=== PATIENT | male | born 1930 | race Caucasian/White ===

== ENCOUNTER 2016-12-23 06:17 | Emergency (ER) | payer MEDICARE, OTHER ==
--- NOTE | 2016-12-23 06:41 | ERNOTE ---
Chest Pain/Cardiac HPI Chief Complaint: Chest Pain Time Seen by Provider: 12/23/16 06:27 Source: patient Exam Limitations: no limitations Allergies/Adverse Reactions: Allergies No Known Allergies Allergy (Verified 12/23/16 06:27) Home Medications: HOME MEDICATIONS Acetaminophen [Tylenol] 650 mg PO QID PRN #1 tablet 08/08/14 [Last Taken Unknown ] Meropenem [Merrem] 1 gm IV Q8H #1 vial 08/08/14 [Last Taken Unknown] Amox Tr/Potassium Clavulanate [Augmentin 500-125 Tablet] 500 mg PO TID #30 tab 08/11/14 [Last Taken Unknown] Clotrimazole [Lotrimin Cream] 1 appl TP BID #1 tube 08/11/14 [Last Taken Unknown ] Colchicine 0.6 mg PO QID #120 tablet 08/11/14 [Last Taken Unknown] Escitalopram Oxalate [Lexapro] 20 mg PO DAILY #30 tab 08/11/14 [Last Taken Unknown] Furosemide [Lasix] 80 mg PO BID #60 tablet 08/11/14 [Last Taken Unknown] Mirtazapine [Remeron] 30 mg PO HS #30 tablet 08/11/14 [Last Taken Unknown] Potassium Chloride [K-Dur] 20 meq PO QID #120 tablet.sa 08/11/14 [Last Taken Unknown] Sennosides/Docusate Sodium [Senokot-S] 2 tab PO BID #120 tablet 08/11/14 [Last Taken Unknown] Warfarin Sodium [Coumadin] 4 mg PO DAILY@1700 #30 tablet 08/11/14 [Last Taken Unknown] tiZANidine HCL [Tizanidine HCl] 2 mg PO TID PRN #20 tablet 12/23/16 [Last Taken Unknown] Narrative: Pt was awakened by right sided sharp chest pain that was "worse with some movements". Initially 7-8/10, now 2/10. Severity/Quality: sharp Location: other - right chest Chest Pain Radiation: no radiation Activities at Onset: sleep Modifying Factors - Improves: Present: position Modifying Factors - Worsens: Present: movement Nitro Today/Relief: 0.4 mg x 1, provided by EMS Associated Symptoms: Absent: shortness of breath, diaphoresis, nausea Prior Chest Pain/Cardiac Workup: Reports: prior chest pain Review of Systems - Review of Systems Constitutional: Absent: recent illness, fever EYE: Present: no symptoms reported ENT: Absent: nose congestion, nasal drainage Respiratory: Absent: shortness of breath, cough Cardiology: Present: See HPI. Absent: edema Gastrointestinal/Abdominal: Absent: nausea, vomiting, abdominal pain Genitourinary: Present: no symptoms reported Musculoskeletal: Absent: muscle pain, muscle stiffness Skin: Present: no symptoms reported Neurological: Present: no symptoms reported Endocrine: Present: no symptoms reported Hematologic/Lymphatic: Present: no symptoms reported Psych: Present: no symptoms reported - Patient's Past Medical History Patient History - Medical: Depression Patient History - Cardiac/Respiratory: Atrial Fibrillation Patient History - Cancer: Skin Patient History - Surgical Procedures: Total Knee Replacement, Other - Family History Mother Family History - Medical: Father Family History - Medical: - Social History Living Situations: home Psych History: Hx of Depression, Current tx/ever been on anti-depressants or anti-anxiety meds Smoking Status: Never smoker Have you smoked in the past 12 months: No Do you dip or chew tobacco: No ED Progress - Results and Orders Patient's Lab Results:: I have reviewed the patient's lab results. Results and Orders: Laboratory Tests 12/23/16 12/23/16 12/23/16 06:40 06:40 06:40 WBC 7.7 Hgb 14.6 Hct 42.0 Plt Count 184 PT 33.5 H INR (Anticoag Therapy) 3.22 H PTT (Brigitte) 41.8 H Sodium 139 Potassium 4.1 Chloride 103 Carbon Dioxide 30.2 Anion Gap 9.9 BUN 21 Creatinine 1.11 Est GFR (Non-Af Amer) 67 D BUN/Creatinine Ratio 18.9 Random Glucose 101 Calcium 8.6 Total Bilirubin 0.9 AST 22 ALT 18 L Alkaline Phosphatase 71 Troponin I Less than 0.017 Total Protein 6.9 Albumin 3.8 - Vital Signs Patient's Vital Signs:: I have reviewed the patient's vital signs. Vital Signs: Vital Signs 12/23/16 06:20 Temperature 36 C L Pulse Rate 71 Respiratory 18 Rate Blood Pressure 142/88 O2 Sat by Pulse 94 Oximetry - EKG EKG: NSR, RBBB EKG read: Interp. by me - X-Ray X-Ray #1 X-Ray: chest Interpretation: Reviewed by me X-ray Comments: no cardiopulmonary abnormalities, no fractures noted. - Progress/Reassessment Chief Complaint: Chest Pain Progress Note-Subjective: 12/23/16 07:32 worse with flexion of neck or leaning forward. Better laying back. Departure - Departure Clinical Impression: Chest pain, musculoskeletal Disposition: Home self-care Condition: Good Instructions: Muscle Strain, [id number], Chest Wall Pain, [id number] Referrals: Murray Azul MD [Primary Care Provider] - Prescriptions: tiZANidine HCL [Tizanidine HCl] 2 mg PO TID PRN #20 tablet PRN Reason: Pain
[2016-12-23 06:46] LABS: Hemoglobin 14.6 gm/dL (13.5-18.0); Mean Cell Volume 93.8 fl (78-100); Mean Corpuscular Hemoglobin 32.6 pg (27-31); Mean Corpuscular Hgb Conc 34.8 g/dl (32-36); Mean Platelet Volume 10.4 fl (6.0-9.5); Neutrophil # 5.4 K/mm3 (1.3-6.0); Platelet Count 184 K/mm3 (150-450); Red Blood Count 4.48 M/mm3 (4.7-6.0); Red Cell Distribution Width 12.7 % (11.5-14.0); White Blood Count 7.7 K/mm3 (4.0-10.5)
[2016-12-23 06:56] LABS: Prothrombin Time (Patient) 33.5 Seconds (9.4-11.4)
[2016-12-23 06:57] LABS: INR 3.22 INR (0.90-1.10); Partial Thrombolplastin Time 41.8 Seconds (24-32)
[2016-12-23 07:04] LABS: ALT 18 U/L (19-67); AST 22 U/L (0-48); Albumin * 3.8 gm/dl (3.4-5.0); Alkaline Phosphatase * 71 U/L (50-170); Anion Gap 9.9 mmol/L (6.8-13.8); BUN/Creatinine Ratio 18.9 (9.0-21.6); Bilirubin, Total 0.9 mg/dL (0.0-1.1); Blood Urea Nitrogen 21 mg/dL (6-23); Ca. Corrected For Albumin 8.4 mg/dL (8.4-10.2); Calcium * 8.6 mg/dL (7.9-10.9); Carbon Dioxide 30.2 mmol/L (24-32.6); Chloride 103 mmol/L (97-106); Glucose * 101 mg/dL (70-110); Potassium 4.1 mmol/L (3.4-4.6); Sodium 139 mmol/L (132-142); Total Protein 6.9 gm/dL (6.2-8.2); Troponin I Less than 0.017 ng/ml (0.00-0.10)
--- OUTSIDE RECORDS SUMMARY | 2016-12-23 07:24 | XMS REPORT | Continuity of Care Document ---
:1930 Author Organization [facility] ([facility]) Address [address] [place] [address] Phone [phone] Care Team Providers Name Role Phone Murray Norris Primary Care Provider [phone] Source Comments This disclosure is being made pursuant to the Care Everywhere program, applicable federal and state laws, and may not contain all informaitonavailable regarding this patient.[facility] ([facility]) Active Allergies and Adverse Reactions No Known Allergies Current Medications Prescription Sig. Disp. Refills Start End Date Status Date docusate 100 mg Take 1 capsule 100 capsule 0 Active capsule (100 mg total) by 6 mouth 2 times daily as needed for Constipation. warfarin 1 mg Continue on 3 mg 200 tablet 3 Active tablet every night except 6 Monday/ when you take 4mg.Continue to have INR check as prior to surgery. escitalopram Take 1 tablet by 11 Active oxalate 20 mg mouth daily. 6 tablet naproxen sodium Take 220 mg by Active (ALEVE) 220 mg mouth 2 times capsule daily as needed. psyllium 0.52 g Take 2.6 g by 12/14/19 Discontinued capsule mouth 2 times 17 daily. oxyCODONE 5 mg Take 1-2 tablets 90 tablet 0 12/14/19 Discontinued immediate release (5-10 mg total) by 6 17 tablet mouth every 4 hours as needed. traMADol 50 mg Take 1-2 tablets 90 tablet 0 12/14/19 Discontinued tablet (50-100 mg total) 6 17 by mouth every 4 hours as needed. Use preferentially ahead of oxycodone to avoid confusion acetaminophen 500 Take 2 tablets 80 tablet 11 12/14/19 Discontinued mg tablet (1,000 mg total) 6 17 by mouth every 6 hours as needed. 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 Status post excision. Hx of skin cancer, basal cell 03/03/2009 Overview: Basal cell carcinoma, left medial canthus, removed via Mohs on 10-22-96, repaired by Oculoplastics, Status post Mohs excision of a basal cell carcinoma, right upper forehead, on 08-24-96 Basal cell carcinoma, right yazdanism, treated with curettage and fulguration on March 04, 2005 Actinic keratosis 03/03/2009 Overview: Followed by [facility] dermatology. 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 Achilles bursitis or tendinitis 03/04/2008 Overview: Bilateral tendonitis, secondary to quinolone exposure. Chest pain, unspecified 04/10/2006 Enthesopathy of hip region 03/22/2005 Most Recent Encounters Date Type Specialty Providers Description 12/22/2016 Office Visit Dermatology Satinder Guevara MD Dx: Actinic keratoses (Primary Dx) 12/13/2016 Hospital Encounter Radiology Liset Steele MD Dx: Aftercare following surgery 12/13/2016 Office Visit Orthopaedic Mati Joe MD Dx: Aftercare following surgery (Primary Dx) Immunizations Name Dates Previously Given Next Due Influenza, unspecified 03/30/2012,04/18/2011,05/22/2002,04/18,06/28/1996,06/30/1995 Pneumococcal Polysaccharide, PPSV23 08/19/2005 (Pneumovax 23) Pneumococcal, unspecified 06/28/1994 Td, adsorbed adult PF 08/19/2005 Social History Tobacco Use Types Packs/Day Years Used Date Never Smoker Smokeless Tobacco: Never Used Tobacco Cessation:Counseling Given: Yes Comments: Alcohol Use Drinks/Week oz/Week Comments No Last Filed Vital Signs Vital Sign Reading Time Taken Blood Pressure 117/63 10/25/2015 8:00 AM CDT Pulse 65 10/25/2015 8:00 AM CDT Temperature 37.3 C (99.1 F) 10/25/2015 8:00 AM CDT Respiratory Rate 18 10/25/2015 8:00 AM CDT Height 1.93 m (6' 4") 12/13/2016 10:40 AM CDT Weight 108.863 kg (240 lb) 12/13/2016 10:40 AM CDT Body Mass Index 29.23 12/13/2016 10:40 AM CDT Oxygen Saturation 95% 10/25/2015 8:00 AM CDT Plan of Care Patient Goal Type Goal Lifestyle maintain current health Date Type Specialty Providers Description 06/22/2017 Appointment Dermatology Gay Kidd MD [address] [place] [address] [phone] (Fax) Chief Comp: Patient Satinder Guevara MD [address] [place] [address] [phone] (Fax) Reported Reason For Visit Health Maintenance Due Date Last Done Comments Hepatitis B Vaccine (1 of 3 1930 - Primary Series) Tdap Vaccine 1943 Colonoscopy 1982 Zoster Vaccine 1992 Pneumococcal Vaccine (2 of 08/19/2006 08/19/2005 2 - PCV13) Lipid Disorder Screening 02/21/2012 02/20/2007, 09/07/2005, Additional history 11/07/2003 exists Td Vaccine 08/19/2015 08/19/2005 Influenza Vaccine: Seasonal Addressed 05/12/2016 (Completed Overridden with the outside this hospital intention of not or clinic), 03/30/2012, completing the topic, 04/18/2011 Additional history exists Procedures from Last 3 Months Procedure Name Priority Date/Time Associated Comments Diagnosis DESTRUCTION Routine 12/22/2016 9:18 Actinic keratoses Results for this PREMALIGNANT LESIONS AM CDT procedure are in the results section. Results from Last 3 Months DESTRUCTION PREMALIGNANT LESIONS (12/22/2016 9:18 AM) Narrative Tai Lawson MD 12/22/20169:18 AM Dermatology Clinic Note Encounter Date: 12/22/2016 Subjective: History of Present Illness: This 86 y.o. male follows up for a history of lentigo maligna and non-melanoma skin cancer.At his last visit an seborrheic keratosis was biopsied and actinic keratoses were treated with cryotherapy. Today he reports healing well from his cryotherapy and biopsy. He reports a few ongoing lesions on the left cheek that will continue to scale, but are otherwise asymptomatic. He denies weight loss, fatigue, night sweats, or lymphadenopathy. No other significant skin rashes or lesions that are bleeding, pruritic, or changing in size/color are reported. The patient has no other skin concerns. Past Medical History: 1) History of non-melanoma skin cancers: -- Basal cell carcinoma on the left medial canthus, removed via Mohs on (10/22/96), repaired by Oculoplastics, -- Basal cell carcinoma, right upper forehead, s/p Mohs excision on 08/24/96 -- Basal cell carcinoma of the right yazdanism treated with curettage and fulguration on (March 04, 2005), with slight degree of induration, suspect secondary to scar formation -- Squamous cell carcinoma, invasive, well-differentiated, s/p excision on left upper arm (07/15/2011) - Skin, left upper arm, shave biopsy (07/02/15): Scar. Milium. -- SCC on left cheek, s/p excision (05/09/12). 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 3) Status post excision of a lentigo maligna, left posterior arm (08/11/94). -Skin, left upper arm, punch (09/12/13): Mature adipose tissue compatible with lipoma. 4) Skin, left yazdanism, shave biopsy (08/16/12): Malignant melanoma in situ, lentigo maligna type. -S/p Mohs (09/2012) 5) Hernia 6) Bilateral knee osteoarthritis s/p bilateral arthroplasty 7) Hyperlipidemia 8) History of hyperplastic colonic polyps 9) Seborrheic keratoses (1) Skin, right nasolabial fold, shave (02/20/09): Seborrheic keratosis. (2) Skin, mid back, shave (06/30/16):Seborrheic keratosis. 10) Actinic keratoses. 11) Skin, right superior scapula, shave biopsy (02/20/14): Benign lichenoid keratosis. 12) Paroxysmal atrial fibrillation 13) Depression 14) Right knee replacement 10/2016 Social History: . 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 He lives 2 hours out of [place]. He enjoys [employer]. He has a hx of serving in the Family History: No family hx of melanoma or non-melanoma skin cancer Medications: Outpatient Medication Currently Taking Medication Sig Refill docusate 100 mg capsule Take 1 capsule (100 mg total) by mouth 2 times daily as needed for Constipation. 0 escitalopram oxalate 20 mg tablet Take 1 tablet by mouth daily. 11 naproxen sodium (ALEVE) 220 mg capsule Take 220 mg by mouth 2 times daily as needed. warfarin 1 mg tablet Continue on 3 mg every night except Monday/ when you take 4mg. Continue to have INR check as prior to surgery. 3 Allergies: No Known Allergies Review of Systems: Skin Establ Pt: The patient denies any new rash, pruritus, or lesions that are symptomatic, changing or bleeding, except as per HPI. Constitutional: The patient denies fatigue, fevers, chills, unintended weight loss, and night sweats Objective: Physical exam: This is a well developed, well-nourished male in no acute distress, with a pleasant affect.Waist-up skin, which includes the head/face, neck, both arms, chest, back, abdomen, digits and/or nails, was examined. Lower legs also examined. - Well-healed surgical scars on the left yazdanism, left cheek, left helix without induration, erythema, telangiectasias - There is a erythematous macules with overlying adherent scale on the left cheek x 3 - Skin colored waxy, hyperkeratotic, stuck on appearing papules on the trunk and extremities - No pre-auricular, post-auricular, submental, cervical, supraclavicular, or axillary lymphadenopathy. - There are no other skin lesions of concern in the areas examined. Impression: 1. History of non-melanoma skin cancers, as per past medical history. No clinical evidence of recurrence. 2. History of lentigo maligna x 2 - on the left yazdanism s/p Mohs (09/2012) and on the left posterior arm s/p excision (08/11/94) 3. Seborrheic keratoses- multiple trunk and extremities 4. Actinic keratoses x 3 (left cheek) Plan: 1. Clinical findings discussed with the patient 2. Cryotherapy performed to actinic keratoses as below. 3. Recommend sunscreens SPF #30 or greater, protective clothing and avoidance of tanning beds. 4. Recommend periodic self skin exams and report of any new or changing lesions. Follow up 6 months. Procedure Performed: AK destruction Area affected: head/neck Location details: left cheek Number of lesions: 3 Additional Procedure Detail: The above described lesions were treated with liquid nitrogen cryotherapy to achieve a freeze border of 1-2 mm. Post-cryotherapy wound care instructions were provided. Explicit verbal and written wound care instructions were provided. The patient left the Dermatology Clinic in good condition. Satinder Guevara MD staffed the patient and was physically present for the ng portions of the above major procedure(s). Staff Involved: Staff and Resident/Fellow Tai aLwson MD RIGHT KNEE AP& LATERAL (12/13/2016 10:28 AM) Impressions impression: Redemonstrated right knee arthroplasty in stable alignment without visualized complication. Small right knee joint effusion. Vascular calcifications noted. Narrative Procedure: RIGHT KNEE AP & LATERAL Clinical Indication: Postoperative right knee arthroplasty follow-up Comparison:Right knee radiograph December 01, 2015 Findings/ Procedure Note Rambo, Incoming Imaging Results - MonDecember 13, 2016 10:31 AM CDT Procedure: RIGHT KNEE AP & LATERAL Clinical Indication: Postoperative right knee arthroplasty follow-up Comparison: Right knee radiograph December 01, 2015 Findings/ IMPRESSION impression: Redemonstrated right knee arthroplasty in stable alignment without visualized complication. Small right knee joint effusion. Vascular calcifications noted.
[2016-12-23 07:39] VITALS: BP 133/90
== END 2016-12-23 08:32 | disposition home or self-care (01) ==
LOC: ER 06:17
DX: R07.89 Other chest pain (principal); Z85.828 Personal history of other malignant neoplasm of skin

== ENCOUNTER 2017-02-04 12:47 | Inpatient (IN) | payer MEDICARE, OTHER ==
--- NOTE | 2017-02-04 13:02 | ERNOTE ---
Head Injury HPI - Narrative Date of Service: 02/04/17 - General Injury to: head, other - bilateral knee Time Seen by Provider: 02/04/17 12:51 Source: patient, EMS Exam Limitations: no limitations - Immun/Allergies/Home Medications Allergies/Adverse Reactions: Allergies Allergy/AdvReac Type Severity Reaction Status Date / Time No Known Allergies Allergy Verified 12/23/16 06:27 Home Medications: HOME MEDICATIONS Acetaminophen [Tylenol] 650 mg PO QID PRN #1 tablet 08/08/14 [Last Taken Unknown ] Meropenem [Merrem] 1 gm IV Q8H #1 vial 08/08/14 [Last Taken Unknown] Amox Tr/Potassium Clavulanate [Augmentin 500-125 Tablet] 500 mg PO TID #30 tab 08/11/14 [Last Taken Unknown] Clotrimazole [Lotrimin Cream] 1 appl TP BID #1 tube 08/11/14 [Last Taken Unknown ] Colchicine 0.6 mg PO QID #120 tablet 08/11/14 [Last Taken Unknown] Escitalopram Oxalate [Lexapro] 20 mg PO DAILY #30 tab 08/11/14 [Last Taken Unknown] Furosemide [Lasix] 80 mg PO BID #60 tablet 08/11/14 [Last Taken Unknown] Mirtazapine [Remeron] 30 mg PO HS #30 tablet 08/11/14 [Last Taken Unknown] Potassium Chloride [K-Dur] 20 meq PO QID #120 tablet.sa 08/11/14 [Last Taken Unknown] Sennosides/Docusate Sodium [Senokot-S] 2 tab PO BID #120 tablet 08/11/14 [Last Taken Unknown] Warfarin Sodium [Coumadin] 4 mg PO DAILY@1700 #30 tablet 08/11/14 [Last Taken Unknown] tiZANidine HCL [Tizanidine HCl] 2 mg PO TID PRN #20 tablet 12/23/16 [Last Taken Unknown] - History of Present Illness Narrative: 86-year-old white male states that he fell prior to arrival. Patient states that he has a history of becoming lightheaded when he first stands up and he oftentimes falls. He states to me that this is not unusual. Today he was seated in the garage stood up quickly and started to walk in accident he fell. He landed on his knees but he also hit his head on the floor. No loss of consciousness. No neck pain or neck injury. He has mild pain of bilateral knees right more than left. He was able to flag down a car passing by who summoned EMS. Patient tried to refuse transfer to the hospital per him but ambulance brought him to our facility. Patient has no confusion. No nausea vomiting. No amnesia. He has no complaints at this time. He is on Coumadin but he is uncertain why Reason for Fall: Reports: lightheaded Loss of Consciousness: Denies: no loss of consciousness Associated Symptoms: Denies: chest pain, cough, shortness of breath, fever/ chills, diaphoresis, headaches, neck pain, weakness, syncope, seizure, loss of appetite, malaise, nausea, vomiting Review of Systems - Review of Systems Constitutional: Present: no symptoms reported. Absent: recent illness, fever, chills EYE: Present: no symptoms reported. Absent: vision changes ENT: Present: no symptoms reported Respiratory: Present: no symptoms reported Cardiology: Present: no symptoms reported. Absent: chest pain, palpitations, syncope, edema, claudication Gastrointestinal/Abdominal: Present: no symptoms reported Genitourinary: Present: no symptoms reported Musculoskeletal: Present: See HPI. Absent: back pain, neck pain Skin: Present: no symptoms reported Neurological: Present: See HPI, dizziness/light-headedness. Absent: anxiety, seizure, weakness, numbness, tingling, tremors Hematologic/Lymphatic: Present: See HPI All Other Systems: All systems neg except as marked - Patient's Past Medical History Patient History - Medical: Depression Patient History - Cardiac/Respiratory: Atrial Fibrillation Patient History - Cancer: Skin Patient History - Surgical Procedures: Total Knee Replacement, Other - Family History Mother Family History - Medical: Father Family History - Medical: - Social History Living Situations: home Psych History: Hx of Depression, Current tx/ever been on anti-depressants or anti-anxiety meds Physical Exam - Physical Exam General Appearance: Present: wd/wn, alert, no apparent distress Head Exam: Present: normal inspection, no evidence of injury. Absent: active bleeding, Heredia's Sign, contusions, ecchymosis, lacerations, swelling, tenderness Eye Exam: Normal inspection: bilateral, PERRL: bilateral, EOMI: bilateral Ears, Nose, Throat: Present: normal ENT inspection Neck: Present: normal inspection, nontender Respiratory: Present: no respiratory distress, normal breath sounds, no accessory muscle use, chest nontender, lungs clear Cardiovascular/Chest: Present: regular rate, rhythm, no murmur, normal peripheral pulses Gastrointestinal/Abdominal: Present: normal bowel sounds, nontender, soft Back Exam: Present: normal inspection, normal range of motion, no CVA tenderness , no vertebral tenderness Extremity Exam: Present: normal except -, other - bilateral knee exam. Full range of motion. No effusion. Small area of erythema and contusion over bilateral patellas. No ligamentous instability. No specific tenderness to suspect bony fracture Neurological Exam: Present: alert, oriented, normal mood/affect, no motor/ sensory deficits, contract law specialist II-XII nml as tested, other - patient walks with a very slow wide-based case and is unsteady. He would fall if not assisted.. Absent: normal cerebellar test Skin Exam: Present: normal color, warm/dry ED Progress - Results and Orders Patient's Lab Results:: I have reviewed the patient's lab results. - Vital Signs Patient's Vital Signs:: I have reviewed the patient's vital signs. - Progress/Reassessment Progress:: Unchanged Progress Note-Subjective: 02/04/17 13:36 Telemetry revealed patient in sinus rhythm during his ED stay. Vital signs stable. CT no acute findings. Labs unremarkable. Orthostatic vital signs unremarkable. But patient is unable to ambulate without assistance. I'm certain he would fall without assistance. 02/04/17 13:37 02/04/17 13:41 Plan - Plan Plan: Patient unable to ambulate without assistance. He would surely fall. Orthostatic vital signs were good. No nystagmus. No vertigo. Patient lives alone and cannot be discharged home. Spoke with hospitalist on-call she accepts admission. In my opinion patient will need to have MRI of the brain tomorrow morning. I am unable to do an MRI at this time in the ED. patient will need PT OT evaluation. He has a history of atrial fibrillation but is currently in sinus rhythm. I have ordered a UA which is pending. Departure Clinical Impression: Paroxysmal atrial fibrillation Accidental fall Qualifiers: Encounter type: initial encounter Qualified Code(s): W19.XXXA - Unspecified fall, initial encounter Head injury Qualifiers: Encounter type: initial encounter Qualified Code(s): S09.90XA - Unspecified injury of head, initial encounter Contusion of knee, left Qualifiers: Encounter type: initial encounter Qualified Code(s): S80.02XA - Contusion of left knee, initial encounter Contusion of right knee Qualifiers: Encounter type: initial encounter Qualified Code(s): S80.01XA - Contusion of right knee, initial encounter - Departure Disposition: [facility] Condition: Stable Instructions: Fall Prevention in the Home, [id number], Contusion, Easy-to- Read, Head Injury, Adult, [id number]
[2017-02-04 13:03] LABS: Hematocrit 39.2 % (42.0-52.0); Hemoglobin 13.3 gm/dL (13.5-18.0); Mean Cell Volume 96.1 fl (78-100); Mean Corpuscular Hemoglobin 32.6 pg (27-31); Mean Corpuscular Hgb Conc 33.9 g/dl (32-36); Mean Platelet Volume 10.5 fl (6.0-9.5); Neutrophil # 4.8 K/mm3 (1.3-6.0); Neutrophil % 65.3 % (42-75.0); Platelet Count 166 K/mm3 (150-450); Red Blood Count 4.08 M/mm3 (4.7-6.0); White Blood Count 7.3 K/mm3 (4.0-10.5)
[2017-02-04 13:15] LABS: INR 2.09 INR (0.90-1.10); Prothrombin Time (Patient) 21.7 Seconds (9.4-11.4)
[2017-02-04 13:18] LABS: Albumin * 3.5 gm/dl (3.4-5.0); Anion Gap 11.6 mmol/L (6.8-13.8); BUN/Creatinine Ratio 16.8 (9.0-21.6); Bilirubin, Total 0.6 mg/dL (0.0-1.1); Ca. Corrected For Albumin 8.5 mg/dL (8.4-10.2); Calcium * 8.4 mg/dL (7.9-10.9); Carbon Dioxide 28.1 mmol/L (24-32.6); Potassium 3.7 mmol/L (3.4-4.6); Total Protein 6.5 gm/dL (6.2-8.2)
[2017-02-04 14:32] LABS: Urine Appearance Clear; Urine Bacteria None Seen; Urine Bilirubin Negative (NEGATIVE); Urine Blood Negative /ul (NEGATIVE); Urine Color Yellow; Urine Ketone Negative (NEGATIVE); Urine Nitrite Negative (NEGATIVE); Urine Protein Negative (NEGATIVE); Urine RBC None Seen /hpf (0-5); Urine Specific Gravity 1.015 SP.GR. (1.005-1.030); Urine Urobilinogen Normal (NORMAL); Urine WBC None Seen /hpf (0-5)
--- NOTE | 2017-02-04 19:56 | HP ---
Chief Complaint - Chief Complaint Date of Service: 02/04/17 Time of Service: 19:55 Chief Complaint: dizziness with fall earlier this morning History of Present Illness: Patient is a 86-year-old WM with a history of chronic A. fib, OA with bilateral TKA, chronic dizziness who came to the ER as his dizziness became worse and had a fall without LOC. He was evaluated in the ER and underwent a head CT w/o which showed chronic microvascular disease and no acute pathology. The patient was admitted into observation. His labs are relatively normal. He did have some orthostatic changes but no nystagmus. 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 - Patient's Past Medical History Additional info: PAST MEDICAL HISTORY: Chronic A. fib on warfarin therapy, dizziness, osteoarthritis with bilateral TKA , depression, lower extremity edema, gout. Patient History - Cancer: Skin Additional Info: PAST SURGICAL HISTORY: Tonsillectomy; colonoscopy 2009 or 2010; LT TKA- 2004; RT TKA-2014; - Family History Mother Family History - Medical: - -old age Father Family History - Medical: - -bladder cancer - Social History Living Situations: alone - ; 2014 Psych History: Hx of Depression, Current tx/ever been on anti-depressants or anti-anxiety meds Smoking Status: Never smoker Have you smoked in the past 12 months: No Review Of Systems (GEN) - Review of Systems Generalized/Overall Review: Absent: Weakness, Weight loss Respiratory: Absent: Cough, Shortness of Breath Cardiac: Present: Edema. Absent: Chest Pain Abdominal: Absent: Nausea, Vomiting Allergies/Adverse Reactions: Allergies Allergy/AdvReac Type Severity Reaction Status Date / Time No Known Allergies Allergy Verified 02/04/17 15:53 Home Medications: HOME MEDICATIONS Escitalopram Oxalate [Lexapro] 20 mg PO DAILY #30 tab 08/11/14 [Last Taken Unknown] Warfarin Sodium [Coumadin] 4 mg PO [id number] 02/05/17 [Last Taken Unknown] Warfarin Sodium [Coumadin] 5 mg PO MOTH 02/05/17 [Last Taken Unknown] Exam - Exam Vital Signs: Vital Signs - Last Taken Temp 36.3 C L 02/04/17 19:00 Pulse 62 02/04/17 19:00 Resp 16 02/04/17 19:00 BP 125/61 02/04/17 19:00 Pulse Ox 96 02/04/17 19:00 Constitutional: Present: Elderly - over 6 feet able to give a reasonable H/o ENT Exam: Present: hearing grossly normal, moist mucous membranes Eye Exam: bilateral eye: PERRL, EOMI Neck: Present: normal inspection, trachea midline Respiratory: Present: lungs clear, normal breath sounds. Absent: no accessory muscle use Cardiovascular/Chest: Present: systolic murmur, irregularly irregular Peripheral Pulses: carotid (R): 2+, carotid (L): 2+ Abdomen: Present: Normal bowel sounds, nontender. Absent: no rebound tenderness Extremity: Present: normal inspection - mild edema ankles Skin Exam: Present: normal color, warm/dry Neurologic: Present: alert, oriented x 3 Eye contact: Present: cooperative, good eye contact, normal speech Diagnostic Studies: Laboratory Tests 02/04/17 12:55 WBC 7.3 Hgb 13.3 L Hct 39.2 L Plt Count 166 02/04/17 12:55 Plasma Sodium 143 H Potassium 3.7 Chloride 107 H Carbon Dioxide 28.1 BUN 21 Creatinine 1.25 Est GFR (Non-Af Amer) 58 L Random Glucose 110 Calcium Adj for Albumin 8.5 Total Bilirubin 0.6 AST 18 ALT 16 L Alkaline Phosphatase 68 Albumin 3.5 Assessment/Plan - Narrative Narrative: 1. Dizziness with orthostatic changes: Patient will be given 1 L of normal saline to see if there is be an improvement in orthostatic changes. Does not have evidence of nystagmus, abnormalities of [id number] to finger test etc. May require cortisol testing. Consider MRI with contrast. Fasting B12 level in a.m. 2. Chronic A. fib: On warfarin therapy. 3. Osteoarthritis: Chronic and stable. S/P bilateral TKA. 4. Other medical problems: Ankle edema, gout, remote history of depression reviewed and stable.
[2017-02-04] MEDS ORDERED: NORMAL SALINE 500 ML IV ONE (20:53)
[2017-02-05] MEDS ORDERED: ACETAMINOPHEN 325 MG TABLET PO PRN (06:57)
[2017-02-05 08:24] LABS: Prothrombin Time (Patient) 27.5 Seconds (9.4-11.4)
[2017-02-05 08:25] LABS: INR 2.64 INR (0.90-1.10)
[2017-02-05] MEDS: CLOTRIMAZOLE 15 APPL TUBE TP SCH ×2 (09:15→21:16)
[2017-02-05] MEDS: POTASSIUM CHLORIDE 20 MEQ TABLET.SA PO SCH ×2 (09:15→16:39)
[2017-02-05] MEDS: COLCHICINE 0.6 MG TABLET PO SCH ×4 (09:15→21:14)
[2017-02-05] MEDS: ESCITALOPRAM OXALATE 10 MG TAB PO SCH (09:15)
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
[2017-02-05] MEDS ORDERED: LORazepam 2 MG/ML DISP.SYRIN IV ONE (12:02)
[2017-02-05] MEDS: WARFARIN SODIUM 4 MG TABLET PO SCH (16:40)
[2017-02-05] MEDS: MIRTAZAPINE 15 MG TABLET PO SCH (21:14)
[2017-02-05] MEDS ORDERED: HALOPERIDOL LACTATE 5 MG/ML VIAL IM PRN (23:38)
[2017-02-06 00:10] LABS: Hematocrit 39.9 % (42.0-52.0); Hemoglobin 13.5 gm/dL (13.5-18.0); Mean Cell Volume 95.9 fl (78-100); Mean Corpuscular Hemoglobin 32.5 pg (27-31); Mean Corpuscular Hgb Conc 33.8 g/dl (32-36); Mean Platelet Volume 10.7 fl (6.0-9.5); Neutrophil % 65.3 % (42-75.0); Platelet Count 163 K/mm3 (150-450); Red Blood Count 4.16 M/mm3 (4.7-6.0); Red Cell Distribution Width 12.9 % (11.5-14.0); White Blood Count 7.7 K/mm3 (4.0-10.5)
[2017-02-06] MEDS: HALOPERIDOL 5 MG TABLET PO PRN (00:14)
[2017-02-06 00:21] LABS: Albumin * 3.4 gm/dl (3.4-5.0); Anion Gap 10.6 mmol/L (6.8-13.8); BUN/Creatinine Ratio 19.8 (9.0-21.6); Bilirubin, Total 0.5 mg/dL (0.0-1.1); Ca. Corrected For Albumin 8.4 mg/dL (8.4-10.2); Calcium * 8.2 mg/dL (7.9-10.9); Carbon Dioxide 30.3 mmol/L (24-32.6); Potassium 3.9 mmol/L (3.4-4.6); Total Protein 6.3 gm/dL (6.2-8.2)
--- NOTE | 2017-02-06 02:12 | PN ---
Addendum entered and electronically signed by Shari Toro ARNP 02/06/17 07: 50: patient changed to inpatient status due to new diagnosis of mental status changes and pneumonia. sg Original Note: <Shari Toro - Last Filed: 02/06/17 02:13> Subjective - Date and Time Seen Date: 02/06/17 Time: 02:07 Subjective Narrative: pt with acute mental status changes overnight. became confused, started hallucinating. due to acute change, labs ordered and chest xray ordered (which has not been done as far as i can tell ) this admission. Objective - Review of Systems Generalized/Overall Review: Reports: Weakness, Fatigue. Denies: Fever EENTM: Reports: No Symptoms Reported Respiratory: Reports: No Symptoms Reported Cardiac: Reports: No Symptoms Reported Abdominal: Reports: No Symptoms Reported Genitourinary Symptoms: Reports: Frequency Musculoskeletal Complaints: Reports: No Symptoms Reported Neurological: Reports: No Symptoms Reported Skin: Reports: No Symptoms Reported Endocrine: Reports: No Symptoms Reported Misc: All systems neg except as marked - Vitals Vitals: Last Vital Signs Temp 36.5 C 02/05/17 18:00 Pulse 73 02/05/17 18:00 Resp 18 02/05/17 18:00 BP 102/50 02/05/17 18:00 Pulse Ox 96 02/05/17 18:00 - Abnormal Lab Findings Abnormal Lab Findings: Abnormal Lab Results 02/05/17 02/05/17 02/05/17 Range/Units 00:00 00:00 08:10 RBC 4.16 L (4.7-6.0) M/mm3 Hct 39.9 L (42.0-52.0) % MCH 32.5 H (27-31) pg MPV 10.7 H (6.0-9.5) fl Lymphocytes % 19.7 L (20-51) % Monocytes % 10.8 H (0.0-9) % Eosinophils % 3.5 H (0.0-3.0) % PT 27.5 H (9.4-11.4) Seconds INR (Anticoag Therapy) 2.64 H (0.90-1.10) INR Sodium 144 H (132-142) mmol/L Plasma Sodium 144 H (130-142) mmol/L Chloride 107 H (97-106) mmol/L ALT 18 L (19-67) U/L - EKG/Xray Findings XRAY: chest Interpretation: Reviewed by me - chest xray shows RML pneumonia - confirmed by dr bhatti (erp). - Exam Constitutional: Present: No distress, Elderly. Absent: Oriented x3 - confused and oriented x1 ENT Exam: Present: hearing grossly normal Neck: Present: full range of motion, supple Breasts: Present: Exam deferred Respiratory: Present: chest non-tender, normal breath sounds - left lobe and right upper lobe, no respiratory distress, no accessory muscle use, rales - right middle to lower lobe Cardiovascular/Chest: Present: normal peripheral pulses, regular rate, rhythm, no chest tenderness Abdomen: Present: soft, nontender, nondistended /Rectal: Present: Exam deferred Extremity: Present: non-tender, normal inspection, no calf tenderness Skin Exam: Present: warm/dry, no cyanosis, pallor Assessment/Plan Plan Narrative: Acute mental status change - labs wnl. - pt unwilling to take ativan iv today and thus was unable to sit still for brain MRI today - chest xray done due to AMS - showed RML pneumonia. - awaiting further workup. RML pneumonia - overread by ERP - still c/o fatigue and dizziness - Start antibiotics - Rocephin 1 mg iv daily - Day #1 - Azithromycin 500 mg iv daily - Day #1 - Incentive spirometer while awake. Afib - chronic - on coumadin - INR therapeutic Code status: Full code Gi Proph: hold for now due to AMS VTE: coumadin, INR therapeutic. - Problems/Diagnosis (1) Change in mental status Problem: Acute QualifierTitle: Altered mental status type: unspecified Qualified Code(s) : R41.82 - Altered mental status, unspecified (2) Pneumonia Problem: Acute QualifierTitle: Pneumonia type: due to unspecified organism Laterality: right Lung location: middle lobe of lung Qualified Code(s): J18.1 - Lobar pneumonia, unspecified organism (3) Accidental fall Problem: Acute QualifierTitle: Encounter type: initial encounter Qualified Code(s): W19.XXXA - Unspecified fall, initial encounter (4) Atrial fibrillation Problem: Chronic QualifierTitle: Atrial fibrillation type: chronic Qualified Code(s): I48.2 - Chronic atrial fibrillation (5) MBD (minimal brain dysfunction) Problem: Suspected (6) Osteoarthritis Problem: Chronic QualifierTitle: Osteoarthritis location: multiple joints Osteoarthritis type: primary Qualified Code(s): M15.0 - Primary generalized (osteo)arthritis <Murray Azul - Last Filed: 02/06/17 13:22> Subjective Subjective Narrative: Our nurse practitioner hospitalist, the television cameraman ER doctor and I all agree there is a RML infiltrate on this patient's CXR. Both the nurse practitioner hospitalist and I hear rhonchi in this patient's RML on auscultation. This patient has a clinical diagnosis of RML pneumonia, which explains last night's acute delerium, in spite of the radiologist's interpretation of the CXR as non acute. The three of us practitioners disagree with the radiologist's CXR assessment. Because of the pneumonia diagnosis, we will admit the patient to an acute bed and treat him for pneumonia. I estimate he will be here for three more days. In retrospect, it probably also explains why he was especially weak , fell on his driveway, couldn't get up, precipitating his admission to this hospital. I directed all of out nurse practitioner's care for this patient. Objective - Vitals Vitals: Last Vital Signs Temp 36.6 C 02/06/17 06:00 Pulse 62 02/06/17 06:00 Resp 18 02/06/17 06:00 BP 146/82 02/06/17 06:00 Pulse Ox 96 02/06/17 06:00 - Abnormal Lab Findings Abnormal Lab Findings: Abnormal Lab Results 02/05/17 02/05/17 02/06/17 Range/Units 00:00 00:00 02:10 RBC 4.16 L (4.7-6.0) M/mm3 Hct 39.9 L (42.0-52.0) % MCH 32.5 H (27-31) pg MPV 10.7 H (6.0-9.5) fl Lymphocytes % 19.7 L (20-51) % Monocytes % 10.8 H (0.0-9) % Eosinophils % 3.5 H (0.0-3.0) % PT 29.1 H (9.4-11.4) Seconds INR (Anticoag Therapy) 2.80 H (0.90-1.10) INR Sodium 144 H (132-142) mmol/L Plasma Sodium 144 H (130-142) mmol/L Chloride 107 H (97-106) mmol/L ALT 18 L (19-67) U/L Assessment/Plan - Problems/Diagnosis (1) Atrial fibrillation Problem: Chronic Qualifiers: Atrial fibrillation type: chronic Qualified Code(s): I48.2 - Chronic atrial fibrillation (2) Osteoarthritis Problem: Chronic Qualifiers: Osteoarthritis location: multiple joints Osteoarthritis type: primary Qualified Code(s): M15.0 - Primary generalized (osteo)arthritis (3) MBD (minimal brain dysfunction) Problem: Suspected (4) Accidental fall Problem: Acute Qualifiers: Encounter type: initial encounter Qualified Code(s): W19.XXXA - Unspecified fall, initial encounter
[2017-02-06] MEDS: AZITHROMYCIN 500 MG in DEXTROSE 5 % IN WATER 250 ML IV SCH ×2 (03:19)
[2017-02-06 07:58] LABS: INR 2.8 INR (0.90-1.10); Prothrombin Time (Patient) 29.1 Seconds (9.4-11.4)
[2017-02-06] MEDS: ESCITALOPRAM OXALATE 10 MG TAB PO SCH (11:17)
[2017-02-06] MEDS: COLCHICINE 0.6 MG TABLET PO SCH ×4 (11:17→20:42)
[2017-02-06] MEDS: POTASSIUM CHLORIDE 20 MEQ TABLET.SA PO SCH ×2 (11:18→16:22)
[2017-02-06] MEDS: CLOTRIMAZOLE 15 APPL TUBE TP SCH ×2 (11:18→20:42)
[2017-02-06] MEDS: WARFARIN SODIUM 4 MG TABLET PO SCH (16:22)
[2017-02-06] MEDS: MIRTAZAPINE 15 MG TABLET PO SCH (20:42)
[2017-02-06 22:48] LABS: Hematocrit 38.5 % (42.0-52.0); Mean Cell Volume 97.2 fl (78-100); Mean Corpuscular Hemoglobin 32.8 pg (27-31); Mean Corpuscular Hgb Conc 33.8 g/dl (32-36); Mean Platelet Volume 10.5 fl (6.0-9.5); Neutrophil # 4.8 K/mm3 (1.3-6.0); Neutrophil % 59.8 % (42-75.0); Platelet Count 163 K/mm3 (150-450); Red Blood Count 3.96 M/mm3 (4.7-6.0); Red Cell Distribution Width 13.2 % (11.5-14.0); Venous Blood Gas HCO3 26.1 mmol/L (22.0-29.0); Venous Blood Gas pH 7.4 (7.32-7.43); White Blood Count 8.1 K/mm3 (4.0-10.5)
[2017-02-06 23:10] LABS: Anion Gap 10.2 mmol/L (6.8-13.8); BUN/Creatinine Ratio 19.3 (9.0-21.6); Bilirubin, Total 0.2 mg/dL (0.0-1.1); Ca. Corrected For Albumin 8.5 mg/dL (8.4-10.2); Carbon Dioxide 29.2 mmol/L (24-32.6); Potassium 4.4 mmol/L (3.4-4.6); Total Protein 5.9 gm/dL (6.2-8.2)
[2017-02-07] MEDS: NORMAL SALINE 1,000 ML IV PRN ×2 (00:28→18:12)
[2017-02-07] MEDS: HALOPERIDOL 5 MG TABLET PO PRN (00:30)
[2017-02-07] MEDS: AZITHROMYCIN 500 MG in DEXTROSE 5 % IN WATER 250 ML IV SCH ×2 (04:34)
[2017-02-07 06:09] LABS: Prothrombin Time (Patient) 33.8 Seconds (9.4-11.4)
[2017-02-07 06:20] LABS: INR 3.25 INR (0.90-1.10)
--- NOTE | 2017-02-07 07:42 | PN ---
Subjective - Date and Time Seen Date: 02/07/17 Time: 07:39 Subjective Narrative: Feels ok, no new problems. For MRI today. Objective - Review of Systems Generalized/Overall Review: Reports: Malaise EENTM: Reports: No Symptoms Reported Respiratory: Reports: Cough Cardiac: Reports: No Symptoms Reported Abdominal: Reports: No Symptoms Reported Genitourinary Symptoms: Reports: No Symptoms Reported Musculoskeletal Complaints: Reports: No Symptoms Reported Neurological: Reports: No Symptoms Reported Skin: Reports: No Symptoms Reported Endocrine: Reports: No Symptoms Reported Misc: All systems neg except as marked - Vitals Vitals: Last Vital Signs Selected Entries 02/07/17 02/07/17 03:07 03:26 Temperature 36.4 C L Temperature Oral Source Pulse Rate 54 L Respiratory 18 Rate Blood Pressure 101/55 O2 Sat by Pulse 95 Oximetry Oxygen Delivery Room Air Method - Abnormal Lab Findings Abnormal Lab Findings: Abnormal Lab Results 02/06/17 02/06/17 02/06/17 Range/Units 22:45 22:45 22:45 RBC 3.96 L (4.7-6.0) M/mm3 Hgb 13.0 L (13.5-18.0) gm/dL Hct 38.5 L (42.0-52.0) % MCH 32.8 H (27-31) pg MPV 10.5 H (6.0-9.5) fl Monocytes % 10.5 H (0.0-9) % Eosinophils % 4.6 H (0.0-3.0) % PT (9.4-11.4) Seconds INR (Anticoag Therapy) (0.90-1.10) INR pO2 62.6 H (23.3-35.1) mmHg Total CO2 27.4 H (22.0-26.0) mmol/L VBG O2 Saturation 91.9 L (94.0-98.0) % Chloride 107 H (97-106) mmol/L Random Glucose 111 H (70-110) mg/dL Total Protein 5.9 L (6.2-8.2) gm/dL Albumin 3.0 L (3.4-5.0) gm/dl Procalcitonin (0.05-0.50) ng/mL 02/06/17 02/07/17 Range/Units 22:45 05:56 RBC (4.7-6.0) M/mm3 Hgb (13.5-18.0) gm/dL Hct (42.0-52.0) % MCH (27-31) pg MPV (6.0-9.5) fl Monocytes % (0.0-9) % Eosinophils % (0.0-3.0) % PT 33.8 H (9.4-11.4) Seconds INR (Anticoag Therapy) 3.25 H (0.90-1.10) INR pO2 (23.3-35.1) mmHg Total CO2 (22.0-26.0) mmol/L VBG O2 Saturation (94.0-98.0) % Chloride (97-106) mmol/L Random Glucose (70-110) mg/dL Total Protein (6.2-8.2) gm/dL Albumin (3.4-5.0) gm/dl Procalcitonin Less than 0.05 L (0.05-0.50) ng/mL - Exam Constitutional: Present: Alert, Oriented x3, Cooperative, Well developed, Well nourished, No distress ENT Exam: Present: normal ENT inspection Neck: Present: normal inspection Respiratory: Present: no respiratory distress, rhonchi - RML Cardiovascular/Chest: Present: regular rate, rhythm, no murmur Abdomen: Present: Normal bowel sounds, soft, nontender, nondistended, no rebound tenderness, no hepatospenomegaly Extremity: Present: normal inspection, no pedal edema Skin Exam: Present: normal color, warm/dry, no cyanosis, other - clearing left arm infection Neurologic: Present: alert, oriented x 3 Appearance: Present: appropriate appearance, neat Eye contact: Present: cooperative, good eye contact, normal speech Assessment/Plan Plan Narrative: MRI today. Continue antibiotics. - Problems/Diagnosis (1) Atrial fibrillation Problem: Chronic Qualifiers: Atrial fibrillation type: chronic Qualified Code(s): I48.2 - Chronic atrial fibrillation (2) Osteoarthritis Problem: Chronic Qualifiers: Osteoarthritis location: multiple joints Osteoarthritis type: primary Qualified Code(s): M15.0 - Primary generalized (osteo)arthritis (3) MBD (minimal brain dysfunction) Problem: Suspected (4) Accidental fall Problem: Acute Qualifiers: Encounter type: initial encounter Qualified Code(s): W19.XXXA - Unspecified fall, initial encounter
[2017-02-07] MEDS: COLCHICINE 0.6 MG TABLET PO SCH ×4 (09:05→21:18)
[2017-02-07] MEDS: ESCITALOPRAM OXALATE 10 MG TAB PO SCH (09:05)
[2017-02-07] MEDS: POTASSIUM CHLORIDE 20 MEQ TABLET.SA PO SCH ×2 (09:05→18:05)
[2017-02-07] MEDS: CLOTRIMAZOLE 15 APPL TUBE TP SCH ×2 (09:07→21:18)
[2017-02-08] MEDS: AZITHROMYCIN 500 MG in DEXTROSE 5 % IN WATER 250 ML IV SCH ×2 (02:17)
[2017-02-08] MEDS: NORMAL SALINE 1,000 ML IV PRN ×2 (05:55→15:58)
[2017-02-08 06:18] LABS: Prothrombin Time (Patient) 32.3 Seconds (9.4-11.4)
[2017-02-08 06:24] LABS: INR 3.11 INR (0.90-1.10)
[2017-02-08] MEDS: POTASSIUM CHLORIDE 20 MEQ TABLET.SA PO SCH ×2 (09:35→16:00)
[2017-02-08] MEDS: ESCITALOPRAM OXALATE 10 MG TAB PO SCH (09:35)
[2017-02-08] MEDS: COLCHICINE 0.6 MG TABLET PO SCH ×4 (09:35→20:03)
[2017-02-08] MEDS: CLOTRIMAZOLE 15 APPL TUBE TP SCH ×2 (09:36→20:03)
--- NOTE | 2017-02-08 14:10 | PN ---
Subjective - Date and Time Seen Date: 02/08/17 Time: 07:20 Subjective Narrative: Feels ok, no new problems. MRI ok. More awake today. Likes to nap during the day. Objective - Review of Systems Generalized/Overall Review: Reports: Weakness EENTM: Reports: No Symptoms Reported Respiratory: Reports: No Symptoms Reported Cardiac: Reports: No Symptoms Reported Abdominal: Reports: No Symptoms Reported Genitourinary Symptoms: Reports: No Symptoms Reported Musculoskeletal Complaints: Reports: No Symptoms Reported Neurological: Reports: No Symptoms Reported Skin: Reports: No Symptoms Reported Endocrine: Reports: No Symptoms Reported Misc: All systems neg except as marked - Vitals Vitals: Last Vital Signs Selected Entries 02/08/17 06:00 Temperature 36.6 C Temperature Temporal Artery Source Scan Pulse Rate 59 L Respiratory 18 Rate Respiratory Normal Depth Blood Pressure 135/70 Blood Pressure Supine Position O2 Sat by Pulse 99 Oximetry Oxygen Delivery Room Air Method - Abnormal Lab Findings Abnormal Lab Findings: Abnormal Lab Results 02/07/17 02/08/17 Range/Units 15:30 05:56 PT 32.3 H (9.4-11.4) Seconds INR (Anticoag Therapy) 3.11 H (0.90-1.10) INR pO2 75.6 L (83.0-108.0) mmHg Total CO2 25.5 H (19.0-24.0) mmol/L - Exam Constitutional: Present: Alert, Oriented x3, Cooperative, Well developed, Well nourished, No distress ENT Exam: Present: normal ENT inspection, hearing grossly normal Neck: Present: normal inspection Respiratory: Present: lungs clear - better than yesterday Cardiovascular/Chest: Present: regular rate, rhythm, no murmur Abdomen: Present: Normal bowel sounds, soft, nontender, nondistended, no rebound tenderness, no hepatospenomegaly Extremity: Present: normal inspection, no pedal edema Skin Exam: Present: normal color, warm/dry, no cyanosis Neurologic: Present: alert, oriented x 3 Appearance: Present: appropriate appearance, appropriate insight, neat, no memory impairment Eye contact: Present: cooperative, good eye contact, normal speech Thoughts: Present: normal thought pattern Assessment/Plan Plan Narrative: Increase activity. Home in two days. - Problems/Diagnosis (1) Atrial fibrillation Problem: Chronic Qualifiers: Atrial fibrillation type: chronic Qualified Code(s): I48.2 - Chronic atrial fibrillation (2) Osteoarthritis Problem: Chronic Qualifiers: Osteoarthritis location: multiple joints Osteoarthritis type: primary Qualified Code(s): M15.0 - Primary generalized (osteo)arthritis (3) MBD (minimal brain dysfunction) Problem: Suspected (4) Accidental fall Problem: Acute Qualifiers: Encounter type: initial encounter Qualified Code(s): W19.XXXA - Unspecified fall, initial encounter
[2017-02-09] MEDS: AZITHROMYCIN 500 MG in DEXTROSE 5 % IN WATER 250 ML IV SCH ×2 (01:44)
[2017-02-09] MEDS: NORMAL SALINE 1,000 ML IV PRN ×2 (03:35→23:01)
[2017-02-09 06:07] LABS: Prothrombin Time (Patient) 24.7 Seconds (9.4-11.4)
[2017-02-09 06:22] LABS: INR 2.38 INR (0.90-1.10)
--- NOTE | 2017-02-09 07:19 | PN ---
Subjective - Date and Time Seen Date: 02/09/17 Time: 06:50 Subjective Narrative: Feels ok, no new problems. MRI ok. More awake today. Didn't walk much yesterday. Objective - Review of Systems Generalized/Overall Review: Reports: Weakness, Malaise EENTM: Reports: No Symptoms Reported Respiratory: Reports: Cough Cardiac: Reports: No Symptoms Reported Abdominal: Reports: No Symptoms Reported Genitourinary Symptoms: Reports: No Symptoms Reported Musculoskeletal Complaints: Reports: No Symptoms Reported Neurological: Reports: No Symptoms Reported Skin: Reports: No Symptoms Reported Endocrine: Reports: No Symptoms Reported Misc: All systems neg except as marked - Vitals Vitals: Last Vital Signs Selected Entries 02/09/17 01:41 Temperature 37.1 C Temperature Temporal Artery Source Scan Pulse Rate 67 Respiratory 18 Rate Respiratory Normal Depth Respiratory Normal Effort Non-Labored Blood Pressure 151/74 Blood Pressure Supine Position O2 Sat by Pulse 100 Oximetry Oxygen Delivery Room Air Method - Abnormal Lab Findings Abnormal Lab Findings: Abnormal Lab Results 02/09/17 Range/Units 05:37 PT 24.7 H (9.4-11.4) Seconds INR (Anticoag Therapy) 2.38 H (0.90-1.10) INR - Exam Constitutional: Present: Alert, Oriented x3, Cooperative, Well developed, Well nourished, No distress ENT Exam: Present: normal ENT inspection Neck: Present: normal inspection Respiratory: Present: no respiratory distress, rhonchi - RML Cardiovascular/Chest: Present: regular rate, rhythm, no murmur Abdomen: Present: Normal bowel sounds, soft, nontender, nondistended, no rebound tenderness, no hepatospenomegaly, no masses Skin Exam: Present: normal color, warm/dry, no cyanosis Neurologic: Present: alert, oriented x 3 Appearance: Present: appropriate appearance, neat Eye contact: Present: cooperative, good eye contact, normal speech Thoughts: Present: normal thought pattern Assessment/Plan Plan Narrative: IV antibiotics. Walk. - Problems/Diagnosis (1) Atrial fibrillation Problem: Chronic Qualifiers: Atrial fibrillation type: chronic Qualified Code(s): I48.2 - Chronic atrial fibrillation (2) Osteoarthritis Problem: Chronic Qualifiers: Osteoarthritis location: multiple joints Osteoarthritis type: primary Qualified Code(s): M15.0 - Primary generalized (osteo)arthritis (3) MBD (minimal brain dysfunction) Problem: Suspected (4) Accidental fall Problem: Acute Qualifiers: Encounter type: initial encounter Qualified Code(s): W19.XXXA - Unspecified fall, initial encounter
--- NOTE | 2017-02-09 08:22 | PN ---
Subjective - Date and Time Seen Date: 02/09/17 Time: 08:21 Subjective Narrative: Feels ok, no new problems. MRI ok. More awake today. Didn't walk much yesterday. Just adding a note to add his diagnosis of pneumonia. Objective - Review of Systems Generalized/Overall Review: Reports: Weakness - otherwise the same, Malaise - Vitals Vitals: Last Vital Signs Temp 37 C 02/09/17 06:53 Pulse 84 02/09/17 06:55 Resp 18 02/09/17 06:53 BP 158/76 02/09/17 06:53 Pulse Ox 99 02/09/17 06:53 - Abnormal Lab Findings Abnormal Lab Findings: Abnormal Lab Results 02/09/17 Range/Units 05:37 PT 24.7 H (9.4-11.4) Seconds INR (Anticoag Therapy) 2.38 H (0.90-1.10) INR - Exam Constitutional: Present: Alert - no new Assessment/Plan - Problems/Diagnosis (1) Atrial fibrillation Problem: Chronic Qualifiers: Atrial fibrillation type: chronic Qualified Code(s): I48.2 - Chronic atrial fibrillation (2) Osteoarthritis Problem: Chronic Qualifiers: Osteoarthritis location: multiple joints Osteoarthritis type: primary Qualified Code(s): M15.0 - Primary generalized (osteo)arthritis Narrative: Encourage staff to encourage walking. Otherwise the same. Home tomorrow. (3) MBD (minimal brain dysfunction) Problem: Suspected (4) Accidental fall Problem: Acute Qualifiers: Encounter type: initial encounter Qualified Code(s): W19.XXXA - Unspecified fall, initial encounter (5) RML pneumonia Problem: Acute
[2017-02-09] MEDS: POTASSIUM CHLORIDE 20 MEQ TABLET.SA PO SCH ×2 (09:25→18:28)
[2017-02-09] MEDS: ESCITALOPRAM OXALATE 10 MG TAB PO SCH (09:25)
[2017-02-09] MEDS: CLOTRIMAZOLE 15 APPL TUBE TP SCH ×2 (09:25→20:53)
[2017-02-09] MEDS: COLCHICINE 0.6 MG TABLET PO SCH ×4 (09:25→20:53)
[2017-02-09] MEDS ORDERED: WARFARIN SODIUM 5 MG TABLET PO SCH (17:00)
[2017-02-09] MEDS ORDERED: WARFARIN SODIUM 1 TAB TAB PO SCH (17:00)
[2017-02-10] MEDS: AZITHROMYCIN 500 MG in DEXTROSE 5 % IN WATER 250 ML IV SCH ×2 (03:17)
[2017-02-10 06:07] LABS: Prothrombin Time (Patient) 19.4 Seconds (9.4-11.4)
[2017-02-10 06:14] LABS: INR 1.87 INR (0.90-1.10)
[2017-02-10 07:27] VITALS: BP 176/88
--- NOTE | 2017-02-10 08:25 | DS ---
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 Will go to the bounce back unit at [place], then to [facility] at [place]. Procedures Performed: none Discharge Disposition: Home self care Disposition: Home self-care Condition: Good Discharge Activity: Activity as tolerated Discharge Diet: General/regular food Discharge Level of Care:: SNF - Assisted Assisted Therapy: Physicial Therapy, Occupation Therapy Referrals: Murray Azul MD [Primary Care Provider] - Problem Oriented Discharge Instructions to Patient/Family: Pneumonitis, Weakness, Fall Prevention in the Home Additional Patient Instructions (free text): To [facility] Bounce Back Unit in [place]. Protime on Monday Complete Home Medications List: Complete Home Medication List: Escitalopram Oxalate [Lexapro] 20 mg PO DAILY #30 tab 08/11/14 Warfarin Sodium [Coumadin] 4 mg PO [id number] 02/05/17 Warfarin Sodium [Coumadin] 5 mg PO MOTH 02/05/17
[2017-02-10] MEDS: CLOTRIMAZOLE 15 APPL TUBE TP SCH (09:13)
[2017-02-10] MEDS: COLCHICINE 0.6 MG TABLET PO SCH (09:13)
[2017-02-10] MEDS: ESCITALOPRAM OXALATE 10 MG TAB PO SCH (09:13)
[2017-02-10] MEDS: POTASSIUM CHLORIDE 20 MEQ TABLET.SA PO SCH (09:13)
[2017-02-10] MEDS ORDERED: WARFARIN SODIUM 4 MG TABLET PO SCH (17:00)
== END 2017-02-10 10:15 | DRG 195 ==
LOC: ER 12:47 → MS 14:30 → OBSVTOIN 02-06 07:23
PROVIDERS: ADMIT Internal Medicine; ATTEND Allergy & Immunology
PROC: 4A033R1 Measurement of Arterial Saturation, Peripheral, Percutaneous Approach (ICD-10-PCS; principal; 2017-02-06)
DX: J18.9 Pneumonia, unspecified organism (principal); R41.82 Altered mental status, unspecified; R42 Dizziness and giddiness; S80.02XA Contusion of left knee, initial encounter; S80.01XA Contusion of right knee, initial encounter; W18.30XA Fall on same level, unspecified, initial encounter; M15.0 Primary generalized (osteo)arthritis; I48.2 Chronic atrial fibrillation; Y92.008 Other place in unspecified non-institutional (private) residence as the place of occurrence of the external cause; Z91.81 History of falling; Z79.01 Long term (current) use of anticoagulants
CPT/HCPCS: 36415; 36416; 36600; 70450; 70553; 71010; 80053; 81001; 82607; 82803; 83605; 84145; 85025; 85610; 85730; 87040; 87449; 93005; 97110; 97112; 97116; 97162; 99285; G0378

== ENCOUNTER 2017-03-26 13:53 | Emergency (ER) | payer MEDICARE, OTHER ==
--- NOTE | 2017-03-26 14:13 | ERNOTE ---
Trauma/Assault HPI - General Stated Complaint: FALL TODAY-PAIN Time Seen by Provider: 03/26/17 14:04 Source: patient, family Exam Limitations: no limitations - Immun/Allergies/Home Medications Immunizations: IMMUNIZATION HX Immunizations Up to Date Yes Allergies/Adverse Reactions: Allergies No Known Allergies Allergy (Verified 02/04/17 15:53) Home Medications: HOME MEDICATIONS Warfarin Sodium [Coumadin] 5 mg PO MOTH 02/05/17 [Last Taken Unknown] Acetaminophen [Tylenol] 650 mg PO QID PRN #0 tablet 02/10/17 [Last Taken Unknown ] Cefuroxime Axetil [Cefuroxime] 500 mg PO BID #14 tablet 02/10/17 [Last Taken Unknown] Clotrimazole [Lotrimin Cream] 1 appl TP BID tube 02/10/17 [Last Taken Unknown] Colchicine 0.6 mg PO DAILY #1 tablet 02/10/17 [Last Taken Unknown] Warfarin Sodium [Coumadin] 4 mg PO SuTuWeFrSa@1700 tablet 02/10/17 [Last Taken Unknown] Warfarin Sodium [Coumadin] 5 mg PO MoTh@1700 tablet 02/10/17 [Last Taken Unknown] - History of Present Illness Narrative: Patient has a known neuropathy and already was walking he didn't engage the height of the curb accurately and tripped landing on his right shoulder and bumping the right side of his face. His primary complaint is the right shoulder and he has minimal range of motion in that secondary to pain. He has no complaint of loss of consciousness or confusion according to the family. Location Occurred: Reports: street Pain Location: Reports: upper extremity Method of Injury: Reports: direct blow - patient tripped Severity: moderate Loss of Consciousness: Reports: no loss of consciousness Associated Symptoms - Trauma: Reports: denies symptoms Review of Systems - Review of Systems Constitutional: Present: See HPI EYE: Present: no symptoms reported ENT: Present: no symptoms reported Respiratory: Present: no symptoms reported Cardiology: Present: no symptoms reported Gastrointestinal/Abdominal: Present: no symptoms reported Genitourinary: Present: no symptoms reported Musculoskeletal: Present: See HPI Skin: Present: no symptoms reported Neurological: Present: no symptoms reported Endocrine: Present: no symptoms reported Hematologic/Lymphatic: Present: no symptoms reported Psych: Present: no symptoms reported - Patient's Past Medical History Patient History - Medical: No pertinent hx, Other - 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 Patient History - Cardiac/Respiratory: Atrial Fibrillation Patient History - Cancer: Skin Patient History - Surgical Procedures: No surgical history Patient History - Other: None - Family History Mother Family History - Medical: Father Family History - Medical: - Social History Living Situations: home Abuse History: No History of abuse Psych History: Hx of Depression, Current tx/ever been on anti-depressants or anti-anxiety meds Smoking Status: Smoker, status unknown Alcohol Use: none Drug Use: none - Immunizations Immunizations Up to Date: Yes Physical Exam - Physical Exam General Appearance: Present: wd/wn, alert, moderate distress Head Exam: Present: normal inspection, other - no overt evidence of any head trauma Eye Exam: Normal inspection: bilateral, PERRL: bilateral Ears, Nose, Throat: Present: normal ENT inspection, H, normal pharynx Neck: Present: normal inspection, nontender Respiratory: Present: no respiratory distress, normal breath sounds, no accessory muscle use, chest nontender, lungs clear Cardiovascular/Chest: Present: regular rate, rhythm, no murmur, normal peripheral pulses Gastrointestinal/Abdominal: Present: normal bowel sounds, nontender, nondistended, soft, no organomegaly Rectal Exam: Present: deferred Back Exam: Present: normal inspection, normal range of motion Extremity Exam: Present: no edema, decreased range of motion, bony tenderness - of the right shoulder Neurological Exam: Present: alert, oriented, normal mood/affect Skin Exam: Present: normal color, warm/dry Lymphatic Exam: Present: no adenopathy ED Progress - Results and Orders Patient's Lab Results:: I have reviewed the patient's lab results. - Vital Signs Patient's Vital Signs:: I have reviewed the patient's vital signs. Vital Signs: Vital Signs 03/26/17 13:55 Temperature 36.6 C Pulse Rate 68 Respiratory 14 Rate Blood Pressure 118/78 O2 Sat by Pulse 95 Oximetry - X-Ray X-Ray #1 X-Ray: shoulder Interpretation: Reviewed by me - CT/Ultrasound CT/Ultrasound Narrative: CT of the head was reviewed by me - Progress/Reassessment Chief Complaint: Fall Plan - Plan Plan: Patient likely has a shoulder contusion and given that he is on Coumadin in there very well have some latent bleeding into the bursa. It is unclear whether we have a rotator cuff injury on the right side as he already has rotator cuff injury on the left side. Patient will alternate Aleve and Tylenol at home for the pain to call Dr. Gwen Sandoval for any ongoing treatment as deemed necessary. Departure Clinical Impression: Shoulder contusion Qualifiers: Encounter type: initial encounter Laterality: right Qualified Code(s): S40.011A - Contusion of right shoulder, initial encounter - Departure Disposition: Home self-care Condition: Good Instructions: Shoulder Pain, [id number] Referrals: Murray Azul MD [Primary Care Provider] -
[2017-03-26 14:23] LABS: Hemoglobin 13.8 gm/dL (13.5-18.0); Mean Cell Volume 96.2 fl (78-100); Mean Corpuscular Hemoglobin 32.4 pg (27-31); Mean Corpuscular Hgb Conc 33.7 g/dl (32-36); Mean Platelet Volume 11.1 fl (6.0-9.5); Neutrophil # 4.7 K/mm3 (1.3-6.0); Platelet Count 182 K/mm3 (150-450); Red Blood Count 4.26 M/mm3 (4.7-6.0); Red Cell Distribution Width 12.8 % (11.5-14.0); White Blood Count 7.5 K/mm3 (4.0-10.5)
[2017-03-26 14:29] LABS: Prothrombin Time (Patient) 21.8 Seconds (9.4-11.4)
[2017-03-26 14:30] LABS: INR 2.1 INR (0.90-1.10)
[2017-03-26 14:35] LABS: Albumin * 3.6 gm/dl (3.4-5.0); Anion Gap 12.6 mmol/L (6.8-13.8); Bilirubin, Total 0.4 mg/dL (0.0-1.1); Ca. Corrected For Albumin 8.3 mg/dL (8.4-10.2); Calcium * 8.3 mg/dL (7.9-10.9); Carbon Dioxide 27.6 mmol/L (24-32.6); Potassium 4.2 mmol/L (3.4-4.6); Total Protein 6.7 gm/dL (6.2-8.2)
[2017-03-26 15:45] VITALS: BP 113/74
== END 2017-03-26 15:40 | disposition home or self-care (01) ==
LOC: ER 13:53
DX: S40.011A Contusion of right shoulder, initial encounter (principal)

== ENCOUNTER 2020-06-09 13:57 | Observation (INO) ==
--- NOTE | 2020-06-09 14:25 | ERNOTE ---
Neuro HPI ER Record Presenting Symptoms: other Time Seen by Provider: 06/09/20 14:10 Source: detention records Exam Limitations: clinical condition Immunizations: IMMUNIZATION HX Immunizations Up to Date Yes History of Influenza Vaccine Yes Hx Pneumococcal Vaccination Yes Allergies/Adverse Reactions: Allergies Allergy/AdvReac Type Severity Reaction Status Date / Time No Known Allergies Allergy Verified 06/09/20 14:00 Home Medications: HOME MEDICATIONS acetaminophen 325 mg capsule 650 mg PO Q6H PRN cap 01/30/18 [Last Taken Unknown] allopurinol 100 mg tablet 100 mg PO DAILY 01/30/18 [Last Taken Unknown] bisacodyl 10 mg rectal suppository 10 mg MT DAILY PRN 01/30/18 [Last Taken Unknown] cyanocobalamin (vitamin B-12) 1,000 mcg capsule 1,000 mcg PO DAILY cap 01/30/18 [Last Taken Unknown] escitalopram oxalate 20 mg tablet 20 mg PO DAILY tab 01/30/18 [Last Taken Unknown] albuterol sulfate 0.63 mg/3 mL solution for nebulization 0.63 mg IH QID #90 ml 06/15/18 [Last Taken Unknown] gabapentin 300 mg capsule 300 mg PO BID #0.1 cap 04/10/20 [Last Taken Unknown] mirtazapine 30 mg tablet 30 mg PO HS #30 tab 04/10/20 [Last Taken Unknown] tramadol 50 mg tablet 50 mg PO BID #0.1 tab 04/10/20 [Last Taken Unknown] Albuterol Sulfate/Ipratropium [Duoneb 2.5-0.5MG/3ML Soln] 3 ml IH QID 06/09/20 [Last Taken Unknown] Apixaban [Eliquis] 5 mg PO BID 06/09/20 [Last Taken Unknown] Arginine/Ascorbate Sod/[place] AC [Arginaid Powder] 1 ea PO DAILY 06/09/20 [Last Taken Unknown] Magnesium Hydroxide [Milk Of Magnesia] 30 ml PO DAILY PRN 06/09/20 [Last Taken Unknown] Sennosides [Senna] 8.6 mg PO BID 06/09/20 [Last Taken Unknown] - History of Present Illness Narrative: Patient is coming to the ER for altered mental status. He lives at the [facility] and has dementia. The nursing staff reports this morning he slept longer than usual and when they woke him up he was not his usual self, decreased alertness, he did not want to eat. EMS reported episodes of apnea when loading him in the ambulance. He is unable to give his own history at this time, per his record he is a DNR Medical History (Last Reviewed 06/09/20 @ 17:06 by Heather Ruiz MD) Dementia Alzheimer disease Bilateral knee pain Onset Date: ~11/25/14 Chronic pain of both shoulders Onset Date: ~03/31/17 Dizziness Onset Date: ~09/24/15 Edema Onset Date: ~09/17/14 Gout Onset Date: ~09/18/14 Neuropathic pain of both legs Onset Date: ~03/23/17 Primary pulmonary hypertension AC separation Onset Date: ~03/31/17 left, initial encounter Adhesive capsulitis of right shoulder Onset Date: ~05/01/17 Left shoulder pain Onset Date: ~03/23/17 Rotator cuff disorder Onset Date: ~03/31/17 right Hemiparesis Onset Date: ~03/23/17 Surgical History: Surgical History (Last Reviewed 06/09/20 @ 17:06 by Heather Ruiz MD) History of tonsillectomy History of total left hip replacement Onset Date: ~2003 H/O colonoscopy Onset Date: ~2010 Family History: Family History (Last Reviewed 06/09/20 @ 14:00 by Giuliano Morris RN) Father Cancer Bladder neoplasm Aunt Cancer colon Daughter Diabetes Mother , old age No problems noted. Uncle Cancer prostate Sister Alive and well Social History: (Last Reviewed 06/09/20 @ 14:00 by Giuliano Morris RN) Social History: detention: Yes lives independently: No Service: Yes branch: [employer] status: active duty Tobacco: Smoking Status: Never smoker Alcohol: alcohol intake: never Substance Use: substance use type: does not use Dietary Habits: caffeine: Yes caffeine comment: current some day Type: carbonated beverages Physical Exam - Physical Exam General Appearance: Present: wd/wn, no apparent distress Head Exam: Present: normal inspection, no evidence of injury Eye Exam: Normal inspection: bilateral Respiratory: Present: respiratory distress - increased breathing rate, rhonchi Cardiovascular/Chest: Present: normal peripheral pulses, tachycardia Gastrointestinal/Abdominal: Present: nondistended, soft Neurological Exam: Present: other - doesn't open eyes, holding arms/hand flexed, resists extention Skin Exam: Present: normal color, warm/dry [place] Coma Scale - Assess Eye Opening: None Motor: Abnormal Flexion Verbal: Incomprehensible - Total Coma Scale Total: 6 Progress - Results and Orders Patient's Lab Results:: I have reviewed the patient's lab results. - Vital Signs Patient's Vital Signs:: I have reviewed the patient's vital signs. Vital Signs: Vital Signs 06/09/20 13:58 06/09/20 14:06 06/09/20 14:18 Temperature 36.9 C Pulse Rate 117 H 115 H 111 H Respiratory Rate 35 H 32 H Blood Pressure 80/53 L 93/31 O2 Sat by Pulse Oximetry 91 L 93 - EKG EKG #1 EKG: atrial fibrillation - rate 115, RBBB - X-Ray X-Ray #1 X-Ray: chest - no acute findings Interpretation: Reviewed by me - Progress/Reassessment Chief Complaint: Altered Mental Status Progress Note-Subjective: 06/09/20 14:48 discussed with daughter (POA) how aggressive patient would have wanted to be treated, will get labs, CXR, treat with fluids, antibiotics as indicated but avoid interventions that cause pain and have little expected benefit like urinary catheter 06/09/20 15:04 WBC elevated, will treat for bacterial pneumonia and sepsis with rocephin 06/09/20 15:56 patient meets criteria for severe sepsis, with all SRIS criteria, LA of 10 and low BP no definite source, with normal CXR, patient still might have pneumonia as low O2sats and rhales 06/09/20 16:20 Blood pressure dropping again in spite of second fluid bolus, discussed treatment options with daughter. If we started patient on a Levophed drip he would have to be transferred as no ICU beds available in this hospital. Overall his chances of survival would still be slim. Daughter decided on no vasopressors, will continue fluids, antibiotics, and pain medications as needed. 06/09/20 16:[address] Norris, is not available until tomorrow discussed with arlen Jasmine to admit for sepsis and end of life care Departure Clinical Impression: Severe sepsis - Departure Disposition: Still a patient Condition: Fair Referrals: Murray Azul MD [Primary Care Provider] -
[2020-06-09] MEDS ORDERED: NORMAL SALINE 1,000 ML IV ONE ×2 (14:27→15:35)
[2020-06-09] MEDS ORDERED: ACETAMINOPHEN 1,000 MG/100 ML BTL IV ONE (14:31)
[2020-06-09 14:51] LABS: Hematocrit 39.6 % (42.0-52.0); Hemoglobin 12.2 gm/dL (13.5-18.0); Mean Corpuscular Hemoglobin 32.4 pg (27-31); Mean Corpuscular Hgb Conc 30.8 g/dl (32-36); Mean Platelet Volume 9.9 fl (8-11.3); Platelet Count 247 K/mm3 (150-450); Red Blood Count 3.77 M/mm3 (4.7-6.0); Red Cell Distribution Width 13.5 % (11.5-14.0); White Blood Count 21.8 K/mm3 (4.0-10.5)
[2020-06-09] MEDS ORDERED: cefTRIAXone SODIUM 1,000 MG/100 ML BAG IV ONE (15:03)
[2020-06-09 15:04] LABS: Total Cells Counted 100
[2020-06-09 15:10] LABS: Albumin * 2.8 gm/dl (3.4-5.0); BUN/Creatinine Ratio 15.1 (9.0-21.6); Bilirubin, Total 0.7 mg/dL (0.0-1.1); CRP 3.4 mg/dL (0.0-0.9); Calcium * 8.4 mg/dL (7.9-10.9); Carbon Dioxide 23.4 mmol/L (24-32.6); Potassium 3.4 mmol/L (3.4-4.6); Total Protein 6.5 gm/dL (6.2-8.2)
[2020-06-09 15:23] LABS: Band 21 % (0-2.0); Eosinophil 2 % (0-3); Lymphocyte 4 % (20-51); Monocyte 8 % (0-9); Neutrophil 65 % (42-75); Neutrophil # 14.2 K/mm3 (1.3-6.0)
[2020-06-09 15:26] LABS: Platelet Estimate Normal (NORMAL)
[2020-06-09] MEDS ORDERED: ONDANSETRON HCL/PF 2 MG/ML VIAL IV PRN (17:20)
[2020-06-09] MEDS ORDERED: GLYCERIN/PROPYLENE GLYCOL 150 DROP BTL EACHEYE PRN (17:20)
[2020-06-09] MEDS ORDERED: ACETAMINOPHEN 1,000 MG/100 ML BTL IV PRN (17:25)
--- NOTE | 2020-06-09 20:18 | HP ---
Chief Complaint - Chief Complaint Date of Service: 06/09/20 Time of Service: 19:00 Chief Complaint: weakness. altered mental status. comatose History of Present Illness: Patient is coming to the ER for altered mental status. He lives at the [facility] center and has dementia. The nursing staff reports this morning he slept longer than usual and when they woke him up he was not his usual self, decreased alertness, he did not want to eat. EMS reported episodes of apnea when loading him in the ambulance. He is unable to give his own history at this time, per his record he is a DNR 06/09/20 14:48 discussed with daughter (POA) how aggressive patient would have wanted to be treated, will get labs, CXR, treat with fluids, antibiotics as indicated but avoid interventions that cause pain and have little expected benefit like urinary catheter 06/09/20 15:04 WBC elevated, will treat for bacterial pneumonia and sepsis with rocephin 06/09/20 15:56 patient meets criteria for severe sepsis, with all SRIS criteria, LA of 10 and low BP no definite source, with normal CXR, patient still might have pneumonia as low O2sats and rhales 06/09/20 16:20 Blood pressure dropping again in spite of second fluid bolus, discussed treatment options with daughter. If we started patient on a Levophed drip he would have to be transferred as no ICU beds available in this hospital. Overall his chances of survival would still be slim. Daughter decided on no vasopressors, will continue fluids, antibiotics, and pain medications as needed. 06/09/20 16:[address] Norris, is not available until tomorrow discussed with arlen Jasmine to admit for sepsis and end of life care the above is the interactions Dr. Ruiz had in the ER with Mr. Moreno's daughter (POA). When I met with her this evening she confired that she wants comfort measures with antibiotics. he received 2L NS in the ER and Rocephin 1 gram IV. He had not been moving at all in the ER but he is moving his legs here in the pt. room. He does not respond to verbal or tactile stimuli. I advised her that we would see how he is in the morning and if he awakens then she might want to change from comfort care to a more aggressive treatment. I do not expect him to improve. She has decided against using pressors. Medical History (Last Reviewed 06/09/20 @ 18:53 by Rula Peters RN) Dementia Alzheimer disease Bilateral knee pain Onset Date: ~11/25/14 Chronic pain of both shoulders Onset Date: ~03/31/17 Dizziness Onset Date: ~09/24/15 Edema Onset Date: ~09/17/14 Gout Onset Date: ~09/18/14 Neuropathic pain of both legs Onset Date: ~03/23/17 Primary pulmonary hypertension AC separation Onset Date: ~03/31/17 left, initial encounter Adhesive capsulitis of right shoulder Onset Date: ~05/01/17 Left shoulder pain Onset Date: ~03/23/17 Rotator cuff disorder Onset Date: ~03/31/17 right Hemiparesis Onset Date: ~03/23/17 Surgical History: Surgical History (Last Updated 06/09/20 @ 19:00 by Rula Peters RN) History of total bilateral knee replacement (TKR) History of tonsillectomy History of total left hip replacement Onset Date: ~2003 H/O colonoscopy Onset Date: ~2010 Family History: Family History (Last Reviewed 06/09/20 @ 18:53 by Rula Peters RN) Father Cancer Bladder neoplasm Aunt Cancer colon Daughter Diabetes Mother , old age No problems noted. 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 Tobacco: Smoking Status: Never smoker Alcohol: alcohol intake: never Substance Use: substance use type: does not use Dietary Habits: caffeine: Yes caffeine comment: current some day Type: carbonated beverages Review Of Systems (GEN) - Review of Systems Generalized/Overall Review: Present: Weakness, Malaise EENTM: Present: No Symptoms Reported Respiratory: Present: Cough, Shortness of Breath Cardiac: Present: No Symptoms Reported Abdominal: Present: No Symptoms Reported Genitourinary: Present: Incontinent Musculoskeletal: Present: No Symptoms Reported Neurological: Present: Other - comatose Skin: Present: No Symptoms Reported Endocrine: Present: No Symptoms Reported Immunizations: IMMUNIZATION HX Immunizations Up to Date Yes History of Influenza Vaccine Yes Hx Pneumococcal Vaccination Yes Allergies/Adverse Reactions: Allergies Allergy/AdvReac Type Severity Reaction Status Date / Time No Known Allergies Allergy Verified 06/09/20 14:00 Home Medications: HOME MEDICATIONS acetaminophen 325 mg capsule 650 mg PO Q6H PRN cap 01/30/18 [Last Taken Unknown] allopurinol 100 mg tablet 100 mg PO DAILY 01/30/18 [Last Taken Unknown] bisacodyl 10 mg rectal suppository 10 mg UT DAILY PRN 01/30/18 [Last Taken Unknown] cyanocobalamin (vitamin B-12) 1,000 mcg capsule 1,000 mcg PO DAILY cap 01/30/18 [Last Taken Unknown] escitalopram oxalate 20 mg tablet 20 mg PO DAILY tab 01/30/18 [Last Taken Unknown] albuterol sulfate 0.63 mg/3 mL solution for nebulization 0.63 mg IH QID #90 ml 06/15/18 [Last Taken Unknown] gabapentin 300 mg capsule 300 mg PO BID #0.1 cap 04/10/20 [Last Taken Unknown] mirtazapine 30 mg tablet 30 mg PO HS #30 tab 04/10/20 [Last Taken Unknown] tramadol 50 mg tablet 50 mg PO BID #0.1 tab 04/10/20 [Last Taken Unknown] Albuterol Sulfate/Ipratropium [Duoneb 2.5-0.5MG/3ML Soln] 3 ml IH QID 06/09/20 [Last Taken Unknown] Apixaban [Eliquis] 5 mg PO BID 06/09/20 [Last Taken Unknown] Arginine/Ascorbate Sod/[place] AC [Arginaid Powder] 1 ea PO DAILY 06/09/20 [Last Taken Unknown] Magnesium Hydroxide [Milk Of Magnesia] 30 ml PO DAILY PRN 06/09/20 [Last Taken Unknown] Sennosides [Senna] 8.6 mg PO BID 06/09/20 [Last Taken Unknown] Exam - Exam Vital Signs: Vital Signs - Last Taken Temp 37.5 C 06/09/20 18:44 Pulse 74 06/09/20 18:44 Resp 20 06/09/20 18:44 BP 73/28 L 06/09/20 18:44 Pulse Ox 83 L 06/09/20 18:44 Constitutional: Present: Other - comatose, Elderly, Thin and frail ENT Exam: Present: normal ENT inspection, pharynx normal, TMs normal Eye Exam: bilateral eye: normal inspection, PERRL - sluggish, EOMI - disconjugate Neck: Present: non-tender, limited range of motion Back Exam: Present: normal inspection Breasts: Present: Exam deferred Respiratory: Present: chest non-tender Cardiovascular/Chest: Present: normal peripheral pulses, regular rate, rhythm, no chest tenderness, no edema, no gallop, no JVD, no murmur Peripheral Pulses: carotid (R): 2+, carotid (L): 2+, radial (R): 2+, radial (L): 2+ Abdomen: Present: Normal bowel sounds, soft, nontender, nondistended, no rebound tenderness, no hepatospenomegaly, no masses /Rectal: Present: Exam deferred Extremity: Present: no pedal edema, no calf tenderness, normal capillary refill Skin Exam: Present: normal color, warm/dry, no cyanosis Lymphatic: Present: no adenopathy Neurologic: Present: transportation escort II-XII nml as tested, normal cerebellar test, no motor/sensory deficits, alert, normal mood/affect Appearance: Present: appropriate appearance, appropriate insight, neat, no memory impairment Eye contact: Present: cooperative, good eye contact, normal speech Thoughts: Present: normal thought pattern, no apparent hallucination Diagnostic Studies: Abnormal Lab Results 06/09/20 06/09/20 06/09/20 Range/Units 14:41 14:41 14:41 WBC 21.8 H (4.0-10.5) K/mm3 RBC 3.77 L (4.7-6.0) M/mm3 Hgb 12.2 L (13.5-18.0) gm/dL Hct 39.6 L (42.0-52.0) % MCV 105.0 H (78-100) fl MCH 32.4 H (27-31) pg MCHC 30.8 L (32-36) g/dl Band Neuts % (Manual) 21 H (0-2.0) % Lymphocytes % (Manual) 4 L (20-51) % Neutrophils # (Manual) 14.2 H (1.3-6.0) K/mm3 Lymphocytes # (Manual) 0.9 L (1.5-3.5) k/mm3 Monocytes # (Manual) 1.7 H (0.0-1.0) k/mm3 Sodium 143 H (132-142) mmol/L Carbon Dioxide 23.4 L (24-32.6) mmol/L Anion Gap 17.0 H (6.8-13.8) mmol/L BUN 24 H (6-23) mg/dL Creatinine 1.59 H D (0.4-1.4) mg/dL Est GFR (Non-Af Amer) 44 L D (60-130) mL/min Random Glucose 64 L (70-110) mg/dL Lactic Acid, Venous 10.1 H* (0.4-2.0) mmol/L ALT 11 L (19-67) U/L C-Reactive Prot, Quant 3.4 H (0.0-0.9) mg/dL B-Natriuretic Peptide 4494 H (5-650) pg/mL Albumin 2.8 L (3.4-5.0) gm/dl Procalcitonin (0.05-0.50) ng/mL 06/09/20 Range/Units 14:41 WBC (4.0-10.5) K/mm3 RBC (4.7-6.0) M/mm3 Hgb (13.5-18.0) gm/dL Hct (42.0-52.0) % MCV (78-100) fl MCH (27-31) pg MCHC (32-36) g/dl Band Neuts % (Manual) (0-2.0) % Lymphocytes % (Manual) (20-51) % Neutrophils # (Manual) (1.3-6.0) K/mm3 Lymphocytes # (Manual) (1.5-3.5) k/mm3 Monocytes # (Manual) (0.0-1.0) k/mm3 Sodium (132-142) mmol/L Carbon Dioxide (24-32.6) mmol/L Anion Gap (6.8-13.8) mmol/L BUN (6-23) mg/dL Creatinine (0.4-1.4) mg/dL Est GFR (Non-Af Amer) (60-130) mL/min Random Glucose (70-110) mg/dL Lactic Acid, Venous (0.4-2.0) mmol/L ALT (19-67) U/L C-Reactive Prot, Quant (0.0-0.9) mg/dL B-Natriuretic Peptide (5-650) pg/mL Albumin (3.4-5.0) gm/dl Procalcitonin 26.39 H (0.05-0.50) ng/mL Laboratory Results WBC 21.8 K/mm3 (4.0-10.5) H 06/09/20 14:41 RBC 3.77 M/mm3 (4.7-6.0) L 06/09/20 14:41 Hgb 12.2 gm/dL (13.5-18.0) L 06/09/20 14:41 Hct 39.6 % (42.0-52.0) L 06/09/20 14:41 MCV 105.0 fl (78-100) H 06/09/20 14:41 MCH 32.4 pg (27-31) H 06/09/20 14:41 MCHC 30.8 g/dl (32-36) L 06/09/20 14:41 RDW 13.5 % (11.5-14.0) 06/09/20 14:41 Plt Count 247 K/mm3 (150-450) 06/09/20 14:41 MPV 9.9 fl (8-11.3) 06/09/20 14:41 Neutrophils % (Manual) 65 % (42-75) 06/09/20 14:41 Band Neuts % (Manual) 21 % (0-2.0) H 06/09/20 14:41 Lymphocytes % (Manual) 4 % (20-51) L 06/09/20 14:41 Monocytes % (Manual) 8 % (0-9) 06/09/20 14:41 Eosinophils % (Manual) 2 % (0-3) 06/09/20 14:41 Neutrophils # (Manual) 14.2 K/mm3 (1.3-6.0) H 06/09/20 14:41 Lymphocytes # (Manual) 0.9 k/mm3 (1.5-3.5) L 06/09/20 14:41 Monocytes # (Manual) 1.7 k/mm3 (0.0-1.0) H 06/09/20 14:41 Eosinophils # (Manual) 0.4 k/mm3 (0.0-0.7) 06/09/20 14:41 Platelet Estimate Normal (NORMAL) 06/09/20 14:41 Sodium 143 mmol/L (132-142) H 06/09/20 14:41 Plasma Sodium 142 mmol/L (130-142) 06/09/20 14:41 Potassium 3.4 mmol/L (3.4-4.6) 06/09/20 14:41 Chloride 106 mmol/L (97-106) 06/09/20 14:41 Carbon Dioxide 23.4 mmol/L (24-32.6) L 06/09/20 14:41 Anion Gap 17.0 mmol/L (6.8-13.8) H 06/09/20 14:41 BUN 24 mg/dL (6-23) H 06/09/20 14:41 Creatinine 1.59 mg/dL (0.4-1.4) H D 06/09/20 14:41 Est GFR (Non-Af Amer) 44 mL/min (60-130) L D 06/09/20 14:41 BUN/Creatinine Ratio 15.1 (9.0-21.6) 06/09/20 14:41 Random Glucose 64 mg/dL (70-110) L 06/09/20 14:41 Lactic Acid, Venous 10.1 mmol/L (0.4-2.0) H* 06/09/20 14:41 Calcium 8.4 mg/dL (7.9-10.9) 06/09/20 14:41 Calcium Adj for Albumin 9.0 mg/dL (8.4-10.2) 06/09/20 14:41 Total Bilirubin 0.7 mg/dL (0.0-1.1) 06/09/20 14:41 AST 24 U/L (0-48) 06/09/20 14:41 ALT 11 U/L (19-67) L 06/09/20 14:41 Alkaline Phosphatase 116 U/L (50-170) 06/09/20 14:41 C-Reactive Prot, Quant 3.4 mg/dL (0.0-0.9) H 06/09/20 14:41 B-Natriuretic Peptide 4494 pg/mL (5-650) H 06/09/20 14:41 Total Protein 6.5 gm/dL (6.2-8.2) 06/09/20 14:41 Albumin 2.8 gm/dl (3.4-5.0) L 06/09/20 14:41 Procalcitonin 26.39 ng/mL (0.05-0.50) H 06/09/20 14:41 SARS-CoV-2 (PCR) Not detected (NotDetected) 06/09/20 14:50 Assessment/Plan - Narrative Narrative: 1. Comfort care measures with antibiotics approved 2. Comfort meds ordered. 3. Dr. Norris to assume management tomorrow morning. - Assessment/Plan (1) Severe sepsis Problem: Acute (2) Coma Problem: Acute Qualifiers: Coma depth: [place] coma 9-12 Coma timing: at hospital admission Qualified Code(s): R40.2423 - [place] coma scale score 9-12, at hospital admission (3) Change in mental status Problem: Acute Qualifiers: Altered mental status type: coma Coma depth: [place] coma 9-12 Coma timing: at hospital admission Qualified Code(s): R40.2423 - [place] coma scale score 9-12, at hospital admission (4) Pneumonia Problem: Suspected Qualifiers: Pneumonia type: due to unspecified organism (5) COPD (chronic obstructive pulmonary disease) Problem: Chronic Qualifiers: COPD type: emphysema Emphysema type: panlobular Qualified Code(s): J43.1 - Panlobular emphysema
[2020-06-09] MEDS ORDERED: LORAZEPAM 2 MG/ML ORAL.CONC PO PRN (20:43)
[2020-06-09] MEDS: MORPHINE SULFATE 10 MG/0.5 ML SYRINGE PO PRN ×2 (21:01→23:20)
[2020-06-09] MEDS: ATROPINE SULFATE 50 DROP BTL SL PRN ×2 (21:02→23:21)
[2020-06-10] MEDS: MORPHINE SULFATE 10 MG/0.5 ML SYRINGE PO PRN ×5 (01:50→11:46)
[2020-06-10] MEDS ORDERED: DEXTROSE 5%-NORMAL SALINE 1,000 ML IV PRN (06:37)
[2020-06-10 07:08] VITALS: BP 70/27
--- NOTE | 2020-06-10 07:13 | PN ---
Subjective - Date and Time Seen Date: 06/10/20 Time: 06:15 Subjective Narrative: Patient came to the ER yesterday from a skilled nursing for altered mental status. He lives at the [facility] and has dementia. Yesterday morning he slept longer than usual and when skilled nursing staff woke him up he was not his usual self, decreased alertness, he did not want to eat. EMS reported episodes of apnea when loading him in the ambulance yesterday. He is still unable to give his own history at this time because he remains obtunded. Was previously DNR status which family confirmed at admission. Plan at present is to treat with fluids, antibiotics as indicated but to avoid interventions that cause pain and have little expected benefit like urinary catheter. His bp remained quite low yesterday, but as he is still with us, we will start checking vitals each shift, although prognosis remains extremely poor. We are treating for bacterial pneumonia and sepsis with rocephin. We will check blood work this morning. patient met criteria for severe sepsis, with all SRIS criteria, LA of 10 and low BP, no definite source, with normal CXR, patient still might have pneumonia as low O2sats and rales which persist this morning. Blood pressure was low yesterday in spite of a second fluid bolus. discussed treatment options with daughter. If we started patient on a Levophed drip he would have to be transferred as no ICU beds available in this hospital. Yesterday his daughter decided no vasopressors. He remains obtunded, but if that changes his family might want to change from comfort care to more aggressive treatment. Objective - Review of Systems Generalized/Overall Review: Reports: No Symptoms Reported - obtunded. can't provide history. - Vitals Vitals: Last Vital Signs Temp 37.5 C 06/09/20 18:44 Pulse 74 06/09/20 18:44 Resp 20 06/09/20 18:44 BP 73/28 L 06/09/20 18:44 Pulse Ox 94 06/09/20 19:10 - Abnormal Lab Findings Abnormal Lab Findings: Abnormal Lab Results 06/09/20 06/09/20 06/09/20 Range/Units 14:41 14:41 14:41 WBC 21.8 H (4.0-10.5) K/mm3 RBC 3.77 L (4.7-6.0) M/mm3 Hgb 12.2 L (13.5-18.0) gm/dL Hct 39.6 L (42.0-52.0) % MCV 105.0 H (78-100) fl MCH 32.4 H (27-31) pg MCHC 30.8 L (32-36) g/dl Band Neuts % (Manual) 21 H (0-2.0) % Lymphocytes % (Manual) 4 L (20-51) % Neutrophils # (Manual) 14.2 H (1.3-6.0) K/mm3 Lymphocytes # (Manual) 0.9 L (1.5-3.5) k/mm3 Monocytes # (Manual) 1.7 H (0.0-1.0) k/mm3 Sodium 143 H (132-142) mmol/L Carbon Dioxide 23.4 L (24-32.6) mmol/L Anion Gap 17.0 H (6.8-13.8) mmol/L BUN 24 H (6-23) mg/dL Creatinine 1.59 H D (0.4-1.4) mg/dL Est GFR (Non-Af Amer) 44 L D (60-130) mL/min Random Glucose 64 L (70-110) mg/dL Lactic Acid, Venous 10.1 H* (0.4-2.0) mmol/L ALT 11 L (19-67) U/L C-Reactive Prot, Quant 3.4 H (0.0-0.9) mg/dL B-Natriuretic Peptide 4494 H (5-650) pg/mL Albumin 2.8 L (3.4-5.0) gm/dl Procalcitonin (0.05-0.50) ng/mL 06/09/20 Range/Units 14:41 WBC (4.0-10.5) K/mm3 RBC (4.7-6.0) M/mm3 Hgb (13.5-18.0) gm/dL Hct (42.0-52.0) % MCV (78-100) fl MCH (27-31) pg MCHC (32-36) g/dl Band Neuts % (Manual) (0-2.0) % Lymphocytes % (Manual) (20-51) % Neutrophils # (Manual) (1.3-6.0) K/mm3 Lymphocytes # (Manual) (1.5-3.5) k/mm3 Monocytes # (Manual) (0.0-1.0) k/mm3 Sodium (132-142) mmol/L Carbon Dioxide (24-32.6) mmol/L Anion Gap (6.8-13.8) mmol/L BUN (6-23) mg/dL Creatinine (0.4-1.4) mg/dL Est GFR (Non-Af Amer) (60-130) mL/min Random Glucose (70-110) mg/dL Lactic Acid, Venous (0.4-2.0) mmol/L ALT (19-67) U/L C-Reactive Prot, Quant (0.0-0.9) mg/dL B-Natriuretic Peptide (5-650) pg/mL Albumin (3.4-5.0) gm/dl Procalcitonin 26.39 H (0.05-0.50) ng/mL - Exam Constitutional: Present: Obtunded, Thin and frail ENT Exam: Present: normal ENT inspection Neck: Absent: lymphadenopathy (R), lymphadenopathy (L), thyromegaly Respiratory: Present: no respiratory distress, rales Cardiovascular/Chest: Present: regular rate, rhythm, no edema, no gallop, no JVD, no murmur Abdomen: Present: Normal bowel sounds, soft, nondistended, no hepatospenomegaly, no masses Extremity: Present: slow capillary refill Skin Exam: Present: normal color, cool/dry Lymphatic: Present: no adenopathy Neurologic: Present: sensory deficit Appearance: Present: other Eye contact: Present: other Thoughts: Present: other Assessment/Plan - Problems/Diagnosis (1) Severe sepsis Problem: Acute Narrative: Because his prognosis remains very poor, and because his status is DNR, for the time being we will provide fluids, antibiotics and comfort care. Although the septic source is unknown, it may still be pneumonia in spite of a normal CXR, as his lungs have rales on auscultation. Could also be from urinary tract, but no UA is available, and family declined the use of a catheter. In either case, he is being treated empirically with Rocephin. Given that he still remains with us this morning, we will check blood work and obtain vitals each shift. We will continue comfort care. (2) Coma Problem: Acute Qualifiers: Coma depth: [place] coma 3-8 Coma timing: at hospital admission Qualified Code(s): R40.2433 - [place] coma scale score 3-8, at hospital admission Narrative: [place] coma score remains low this morning. Coma due to sepsis. (3) Pneumonia Problem: Suspected Qualifiers: Pneumonia type: due to unspecified organism Laterality: unspecified late rality Lung location: unspecified part of lung Qualified Code(s): J18.9 - Pneumonia, unspecified organism Narrative: empirical diagnosis. CXR ok, but rales present. 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
[2020-06-10 07:37] LABS: Albumin * 2.2 gm/dl (3.4-5.0); Anion Gap 12.7 mmol/L (6.8-13.8); BUN/Creatinine Ratio 15.4 (9.0-21.6); Bilirubin, Total 0.4 mg/dL (0.0-1.1); Ca. Corrected For Albumin 8.5 mg/dL (8.4-10.2); Calcium * 7.4 mg/dL (7.9-10.9); Hematocrit 30.8 % (42.0-52.0); Hemoglobin 9.9 gm/dL (13.5-18.0); Mean Cell Volume 102.3 fl (78-100); Mean Corpuscular Hemoglobin 32.9 pg (27-31); Mean Corpuscular Hgb Conc 32.1 g/dl (32-36); Mean Platelet Volume 10.8 fl (8-11.3); Platelet Count 180 K/mm3 (150-450); Potassium 3.7 mmol/L (3.4-4.6); Red Blood Count 3.01 M/mm3 (4.7-6.0); Total Protein 5.6 gm/dL (6.2-8.2); White Blood Count 59.1 K/mm3 (4.0-10.5)
[2020-06-10 07:42] LABS: Total Cells Counted 100
[2020-06-10 08:20] LABS: Band 13 % (0-2.0); Lymphocyte 3 % (20-51); Monocyte 6 % (0-9); Neutrophil 78 % (42-75); Neutrophil # 46.1 K/mm3 (1.3-6.0)
[2020-06-10 08:21] LABS: Platelet Estimate Normal (NORMAL); Poikilocytosis Trace
--- NOTE | 2020-06-10 10:39 | PN ---
Subjective - Date and Time Seen Date: 06/10/20 Time: 10:38 Subjective Narrative: Just spoke with Dr. Allen, [facility]. She recommends inpatient admission. Objective - Vitals Vitals: Last Vital Signs Temp 37.5 C 06/10/20 07:05 Pulse 82 06/10/20 07:05 Resp 20 06/10/20 07:05 BP 70/27 L 06/10/20 07:05 Pulse Ox 96 06/10/20 07:05 - Abnormal Lab Findings Abnormal Lab Findings: Abnormal Lab Results 06/09/20 06/09/20 06/09/20 Range/Units 14:41 14:41 14:41 WBC 21.8 H (4.0-10.5) K/mm3 RBC 3.77 L (4.7-6.0) M/mm3 Hgb 12.2 L (13.5-18.0) gm/dL Hct 39.6 L (42.0-52.0) % MCV 105.0 H (78-100) fl MCH 32.4 H (27-31) pg MCHC 30.8 L (32-36) g/dl Neutrophils % (Manual) (42-75) % Band Neuts % (Manual) 21 H (0-2.0) % Lymphocytes % (Manual) 4 L (20-51) % Neutrophils # (Manual) 14.2 H (1.3-6.0) K/mm3 Lymphocytes # (Manual) 0.9 L (1.5-3.5) k/mm3 Monocytes # (Manual) 1.7 H (0.0-1.0) k/mm3 Sodium 143 H (132-142) mmol/L Plasma Sodium (130-142) mmol/L Chloride (97-106) mmol/L Carbon Dioxide 23.4 L (24-32.6) mmol/L Anion Gap 17.0 H (6.8-13.8) mmol/L BUN 24 H (6-23) mg/dL Creatinine 1.59 H D (0.4-1.4) mg/dL Est GFR (Non-Af Amer) 44 L D (60-130) mL/min Random Glucose 64 L (70-110) mg/dL Lactic Acid, Venous 10.1 H* (0.4-2.0) mmol/L Calcium (7.9-10.9) mg/dL AST (0-48) U/L ALT 11 L (19-67) U/L C-Reactive Prot, Quant 3.4 H (0.0-0.9) mg/dL B-Natriuretic Peptide 4494 H (5-650) pg/mL Total Protein (6.2-8.2) gm/dL Albumin 2.8 L (3.4-5.0) gm/dl Procalcitonin (0.05-0.50) ng/mL 06/09/20 06/10/20 06/10/20 Range/Units 14:41 07:16 07:16 WBC 59.1 H D (4.0-10.5) K/mm3 RBC 3.01 L (4.7-6.0) M/mm3 Hgb 9.9 L (13.5-18.0) gm/dL Hct 30.8 L (42.0-52.0) % MCV 102.3 H (78-100) fl MCH 32.9 H (27-31) pg MCHC (32-36) g/dl Neutrophils % (Manual) 78 H (42-75) % Band Neuts % (Manual) 13 H (0-2.0) % Lymphocytes % (Manual) 3 L (20-51) % Neutrophils # (Manual) 46.1 H (1.3-6.0) K/mm3 Lymphocytes # (Manual) (1.5-3.5) k/mm3 Monocytes # (Manual) 3.5 H (0.0-1.0) k/mm3 Sodium 143 H (132-142) mmol/L Plasma Sodium 143 H (130-142) mmol/L Chloride 109 H (97-106) mmol/L Carbon Dioxide (24-32.6) mmol/L Anion Gap (6.8-13.8) mmol/L BUN 34 H (6-23) mg/dL Creatinine 2.21 H D (0.4-1.4) mg/dL Est GFR (Non-Af Amer) 30 L D (60-130) mL/min Random Glucose (70-110) mg/dL Lactic Acid, Venous (0.4-2.0) mmol/L Calcium 7.4 L (7.9-10.9) mg/dL AST 204 H (0-48) U/L ALT (19-67) U/L C-Reactive Prot, Quant (0.0-0.9) mg/dL B-Natriuretic Peptide (5-650) pg/mL Total Protein 5.6 L (6.2-8.2) gm/dL Albumin 2.2 L (3.4-5.0) gm/dl Procalcitonin 26.39 H (0.05-0.50) ng/mL /25/20 Range/Units 07:16 WBC (4.0-10.5) K/mm3 RBC (4.7-6.0) M/mm3 Hgb (13.5-18.0) gm/dL Hct (42.0-52.0) % MCV (78-100) fl MCH (27-31) pg MCHC (32-36) g/dl Neutrophils % (Manual) (42-75) % Band Neuts % (Manual) (0-2.0) % Lymphocytes % (Manual) (20-51) % Neutrophils # (Manual) (1.3-6.0) K/mm3 Lymphocytes # (Manual) (1.5-3.5) k/mm3 Monocytes # (Manual) (0.0-1.0) k/mm3 Sodium (132-142) mmol/L Plasma Sodium (130-142) mmol/L Chloride (97-106) mmol/L Carbon Dioxide (24-32.6) mmol/L Anion Gap (6.8-13.8) mmol/L BUN (6-23) mg/dL Creatinine (0.4-1.4) mg/dL Est GFR (Non-Af Amer) (60-130) mL/min Random Glucose (70-110) mg/dL Lactic Acid, Venous 2.6 H* (0.4-2.0) mmol/L Calcium (7.9-10.9) mg/dL AST (0-48) U/L ALT (19-67) U/L C-Reactive Prot, Quant (0.0-0.9) mg/dL B-Natriuretic Peptide (5-650) pg/mL Total Protein (6.2-8.2) gm/dL Albumin (3.4-5.0) gm/dl Procalcitonin (0.05-0.50) ng/mL Assessment/Plan - Problems/Diagnosis (1) Severe sepsis Problem: Acute (2) Coma Problem: Acute Qualifiers: Coma depth: [place] coma 3-8 Coma timing: at hospital admission Qualified Code(s): R40.2433 - [place] coma scale score 3-8, at hospital admission (3) Pneumonia Problem: Suspected Qualifiers: Pneumonia type: due to unspecified organism Laterality: unspecified laterality Lung location: unspecified part of lung Qualified Code(s): J18.9 - Pneumonia, unspecified organism (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
--- NOTE | 2020-06-10 12:16 | DS ---
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 He lives at the [facility] and has dementia. Yesterday morning he slept longer than usual and when [facility] staff woke him up he was not his usual self, decreased alertness, he did not want to eat. EMS reported episodes of apnea when loading him in the ambulance yesterday. He is still unable to give his own history at this time because he remains obtunded. Was previously DNR status which family confirmed at admission. Plan had been to treat with fluids, antibiotics as indicated but to avoid interventions that cause pain and have little expected benefit like urinary catheter. His bp remained quite low yesterday. Prognosis remains extremely poor. We have been treating for bacterial pneumonia and sepsis with rocephin. Two blood cultures are positive for gram negative rods. We will check blood work this morning. patient had met criteria for severe sepsis. This morning his family decided they want comfort hospice care only, so we will follow their wishes. Procedures Performed: none Results and Findings: Pending Mircobiology Results 06/09/20 15:16 Blood Blood Culture - Preliminary Ruling Out Pathogen 06/09/20 14:41 Blood Blood Culture - Preliminary Ruling Out Pathogen Lab Pending Results 06/09/20 14:41: Sodium 143 H, Plasma Sodium 142, Potassium 3.4, Chloride 106, Carbon Dioxide 23.4 L, Anion Gap 17.0 H, BUN 24 H, Creatinine 1.59 H D, Est GFR (Non-Af Amer) 44 L D, BUN/Creatinine Ratio 15.1, Random Glucose 64 L, Calcium 8.4, Calcium Adj for Albumin 9.0, Total Bilirubin 0.7, AST 24, ALT 11 L, Alkaline Phosphatase 116, C-Reactive Prot, Quant 3.4 H, B-Natriuretic Peptide 4494 H, Total Protein 6.5, Albumin 2.8 L 06/09/20 14:41: WBC 21.8 H, RBC 3.77 L, Hgb 12.2 L, Hct 39.6 L, MCV 105.0 H, MCH 32.4 H, MCHC 30.8 L, RDW 13.5, Plt Count 247, MPV 9.9, Neutrophils % (Manual) 65, Band Neuts % (Manual) 21 H, Lymphocytes % (Manual) 4 L, Monocytes % (Manual) 8, Eosinophils % (Manual) 2, Neutrophils # (Manual) 14.2 H, Lymphocytes # (Manu al) 0.9 L, Monocytes # (Manual) 1.7 H, Eosinophils # (Manual) 0.4, Platelet Estimate Normal 06/09/20 14:41: Lactic Acid, Venous 10.1 H* 06/09/20 14:41: Procalcitonin 26.39 H 06/09/20 14:50: SARS-CoV-2 (PCR) Not detected 06/10/20 07:16: WBC 59.1 H D, RBC 3.01 L, Hgb 9.9 L, Hct 30.8 L, MCV 102.3 H, MC H 32.9 H, MCHC 32.1, RDW 14.0, Plt Count 180, MPV 10.8, Neutrophils % (Manual) 78 H, Band Neuts % (Manual) 13 H, Lymphocytes % (Manual) 3 L, Monocytes % (Manual) 6, Neutrophils # (Manual) 46.1 H, Lymphocytes # (Manual) 1.8, Monocytes # (Manual) 3.5 H, Platelet Estimate Normal, Poikilocytosis Trace 06/10/20 07:16: Sodium 143 H, Plasma Sodium 143 H, Potassium 3.7, Chloride 109 H, Carbon Dioxide 25.0, Anion Gap 12.7, BUN 34 H, Creatinine 2.21 H D, Est GFR (Non-Af Amer) 30 L D, BUN/Creatinine Ratio 15.4, Random Glucose 72, Calcium 7.4 L, Calcium Adj for Albumin 8.5, Total Bilirubin 0.4, AST 204 H, ALT 46, Alkaline Phosphatase 78, Total Protein 5.6 L, Albumin 2.2 L 06/10/20 07:16: Lactic Acid, Venous 2.6 H* Discharge Location: [facility] Disposition: Intermediate Care Facility [facility] Home Health Agency: [facility] Hospice Condition: Poor Discharge Activity: Other - bed rest Discharge Diet: NPO Referrals: Murray Azul MD [Primary Care Provider] - Additional Patient Instructions (free text): call for any problems or questions. Complete Home Medications List: Complete Home Medication List: Atropine Sulfate [Isopto Atropine 1%] 2 drp SL Q2H PRN #1 btl 06/10/20 Glycerin/Propylene Glycol [Artificial Tears] 2 drp EACHEYE PRN PRN #1 btl 06/10/20 Lorazepam [Ativan Intensol] 2 mg PO Q3H PRN #30 ml 06/10/20 Morphine Sulfate [Morphine Sulfate Conc. Oral Solution] 2 mg PO Q2H PRN #20 ml 06/10/20
== END 2020-06-10 14:00 | disposition hospice, home (50) ==
LOC: ER 13:57 → MS 13:57
PROVIDERS: ADMIT Family Medicine; ATTEND Allergy & Immunology